=== PATIENT | male | born 1985 | race Caucasian/White ===

== ENCOUNTER 2021-07-23 07:41 | Emergency (ER) | payer SELFPAY ==
--- OUTSIDE RECORDS SUMMARY | 2021-07-23 07:44 | XMS REPORT | Continuity of Care Document ---
:1985 Author Organization [facility] t Address [address] [place] [address] Care Team Providers Name Role Phone Edgardo ROYAL Primary Care Physician Gatito THOMASON Attending Clinician Problems Condition Condition Condition Status Onset Resolution Last Treating Co mments Source Name Details Category Date Date Treatment Clinician Date No known No known Disease Unive rs active active ity of problems problems [facility] Allergies, Adverse Reactions, Alerts This patient has no known allergies or adverse reactions. Social History Social Habit Start Date Stop Date Quantity Comments Source History of Snuff User University of tobacco use [facility] Exposure to Not sure University SARS-CoV-2 [facility] (event) [place] Alcohol intake 2021-07-07 2021-07-07 Lifetime University of 00:00:00 00:00:00 non-drinker [facility] (finding) [place] Tobacco use and 2021-06-11 2021-06-11 Current user Univers ity of exposure 00:00:00 00:00:00 [facility] Sex Assigned At [birth year] Universit y of 00:00:00 00:00:00 [facility] Smoking Status Start Date Stop Date Source Never smoker [facility] Medications Ordered Filled Start Stop Current Ordering Indication Dosage Frequency Signature Comments Components Source Medication Medication Date Date Medication? Clinician (SIG) Name Name amoxicillin Yes [id number] 500mg Take 1 Univers 500 mg 3-31 tablet by ity of tablet 00:00: mouth 2 [place] [address] (two) Medical times [place] daily. clarithromy Yes [id number] 500mg Take 1 Univers brodie 500 mg 3-31 tablet by ity of tablet 00:00: mouth [place] 00 every 12 Medical (twelve) Branch hours. SERTraline Yes Take by Uni vers 100 mg 3-24 mouth ity of tablet 10:09: daily. [address] Branch omeprazole Yes 20mg Take 20 mg U nivers (PRILOSEC 3-24 by mouth ity of OTC) 20 mg 10:09: daily. [facility] 12 Medical Branch busPIRone 2021- Yes [id number] 10mg Take 1 U nivers 10 mg 3-24 05-09 tablet by ity of tablet 00:00: 04:59 mouth 2 [place] 00 :00 (two) Medical times Branch daily as needed for Other (anxiety) for up to 45 days. pantoprazol 2020-03 Yes [id number] 40mg Take 1 Univers e 40 mg EC 1-02 tablet by ity of tablet 00:00: mouth [place] 00 daily. Medical Branch sucralfate 2020-03 Yes [id number] 1g Take 1 U nivers 1 gram 1-02 tablet by ity of tablet 00:00: mouth [place] 00 before Medical meals and Branch at bedtime. Vital Signs Vital Name Observation Time Observation Value Comments Source Systolic blood 2021-07-07 20:54:00 126 mm[Hg] [facility] Diastolic blood 2021-07-07 20:54:00 83 mm[Hg] [facility] Heart rate 2021-07-07 20:54:00 78 /min [facility] Body height 2021-07-07 20:54:00 188 cm [facility] Body weight 2021-07-07 20:54:00 88.111 kg [facility] BMI 2021-07-07 20:54:00 24.94 kg/m2 [facility] Oxygen saturation 2021-07-07 20:54:00 96 /min [facility] in Arterial blood Medical Br anch by Pulse oximetry Procedures This patient has no known procedures. Encounters Start End Encounter Admission Attending Care Care Encounter Source Date/Time Date/Time Type Type Clinicians Facility Department ID 2021-07-07 2021-07-07 ALYSHA Macdonald [id number] Univers 15:40:00 16:15:40 Visit Jet RICHARDSON [id number] Rebeca [id number] Althea TERRAZASIO [id number] Ma dical NAL 059 Branch BUILDING Results This patient has no known results.
[2021-07-23 08:12] LABS: Absolute Lymphocytes (CBC) 1.3 K/uL (0.7-4.9); Hematocrit 46.4 % (39.6-49.0); Lymphocytes % 19.5 % (15.3-44.8); MPV 7.8 fL (7.6-11.3); RBC Red Blood Cell Count 5.22 M/uL (4.33-5.43)
[2021-07-23 08:13] LABS: Protime INR 0.99
[2021-07-23] MEDS ORDERED: NA CHLORIDE 0.9% 1,000 ML ONE (08:14)
[2021-07-23] MEDS ORDERED: ASPIRIN 81 MG CHEWABLE TABLET ONE (08:14)
[2021-07-23 08:26] LABS: ALT/SGPT 33 U/L (12-78); AST/SGOT 19 U/L (15-37); Alkaline Phosphatase 50 U/L (45-117); BUN Blood Urea Nitrogen 19 mg/dL (7-18); Bicarbonate 23 mmol/L (21-32); Bilirubin Total 0.2 mg/dL (0.2-1.0); Glucose Level 98 mg/dL (74-106); Magnesium 2.3 mg/dL (1.8-2.4); NT PRO-BNP 19 pg/mL (<125); Potassium 3.7 mmol/L (3.5-5.1); Protein, Total 7.5 g/dL (6.4-8.2); Sodium Level 137 mmol/L (136-145); Troponin High Sensitivity 3.8 pg/mL (<58.9)
[2021-07-23 08:38] LABS: Bilirubin Direct < 0.1 mg/dL (0-0.2)
--- NOTE | 2021-07-23 08:39 | RAD REPORT ---
EXAM DESCRIPTION: Santino Single View07/23/2021 8:21 am CLINICAL HISTORY: Chest pain COMPARISON: none FINDINGS: Lungs are hyperaerated. The lungs appear clear of acute infiltrate. The heart is normal size
[2021-07-23] MEDS ORDERED: PANTOPRAZOLE 40 MG INJ ONE (09:14)
--- NOTE | 2021-07-23 10:03 | ER ---
Nurse's Notes [facility] Name: Victoriano Pantoja Age: 35 yrs Sex: Male : 1985 Arrival Date: 07/23/2021 Time: 07:[address] Private MD: Diagnosis: Acute gastritis;Chest pain, unspecified Presentation: 07/23 07:55 Chief complaint: Patient states: has had epigastric and chest pains sporadically over iw past 6 months, has been seen by GI Dr. Faina melton and diagnosed with chronic gastritis , H. Pylori, been on abx, is still having soreness in epigastric area and now has sharp pain in RUQ since last night , is also seeing a drilling machine runner in [facility] and is due for an echo and stress test. Coronavirus screen: At this time, the client does not indicate any symptoms associated with coronavirus-19. Ebola Screen: Patient negative for fever greater than or equal to 101.5 degrees Fahrenheit, and additional compatible Ebola Virus Disease symptoms Patient denies exposure to infectious person. Patient denies travel to an Ebola-affected area in the 21 days before illness onset. No symptoms or risks identified at this time. Risk Assessment: Do you want to hurt yourself or someone else? Patient reports no desire to harm self or others. Onset of symptoms was March 2021. 07:55 Method Of Arrival: Ambulatory iw 07:55 Acuity: CHELSEA 3 iw Historical: - Allergies: 07:59 No Known Allergies; iw - Home Meds: 07:59 None [Active]; iw - PMHx: 08:02 chronic gastritis; H. Pylori; iw - PSHx: 07:59 None; iw - Immunization history:: Client reports having NOT received the Covid vaccine. - Social history:: Smoking status: Patient denies any tobacco usage or history of. - Family history:: not pertinent. Screenin:46 Abuse screen: Denies threats or abuse. Nutritional screening: No deficits noted. vg1 Tuberculosis screening: No symptoms or risk factors identified. Fall Risk No fall in past 12 months (0 pts). No secondary diagnosis (0 pts). IV access (20 points). Ambulatory Aid- None/Bed Rest/Nurse Assist (0 pts). Gait- Normal/Bed Rest/Wheelchair (0 pts) Mental Status- Oriented to own ability (0 pts). Total Phelps Fall Scale indicates No Risk (0-24 pts). Assessment: 07:50 General: Appears in no apparent distress. uncomfortable, Behavior is calm, cooperative. vg1 Pain: Complains of pain in chest Pain radiates to under right side of ribs Pain currently is 5 out of 10 on a pain scale. Pain began 1 day ago. Neuro: Cherry Agitation-Sedation Scale (RASS): 0 - Alert and Calm Level of Consciousness is awake, alert, obeys commands, confused, Oriented to person, place, time, situation, Reports dizziness, headache. Cardiovascular: Patient's skin is warm and dry. Respiratory: Reports shortness of breath at rest on exertion Airway is patent Respiratory effort is even, unlabored. GI: Abdomen is flat, Reports nausea. : No signs and/or symptoms were reported regarding the genitourinary system. EENT: No signs and/or symptoms were reported regarding the EENT system. Derm: Skin is intact, is healthy with good turgor. Musculoskeletal: Circulation, motion, and sensation intact. 08:47 Reassessment: Patient appears in no apparent distress at this time. No changes from vg1 previously documented assessment. Patient and/or family updated on plan of care and expected duration. Pain level reassessed. Patient is alert, oriented x 3, equal unlabored respirations, skin warm/dry/pink. 10:04 Reassessment: Patient appears in no apparent distress at this time. No changes from vg1 previously documented assessment. Patient and/or family updated on plan of care and expected duration. Pain level reassessed. Patient is alert, oriented x 3, equal unlabored respirations, skin warm/dry/pink. 10:05 Reassessment: Pt up for d/c, waiting for CT results. vg1 Vital Signs: 08:01 Pulse 91; Resp 16; Pulse Ox 99% on R/A; Weight 86.18 kg; Height 6 ft. 2 in. (187.96 iw cm); Pain 7/10; 08:13 BP 123 / 84; Temp 98.1; jl7 09:00 BP 121 / 78; Pulse 85; Resp 16; Pulse Ox 100% on R/A; vg1 10:04 BP 115 / 83; Pulse 63; Resp 16; Pulse Ox 99% on R/A; vg1 08:01 Body Mass Index 24.39 (86.18 kg, 187.96 cm) ED Course: 07:42 Patient arrived in ED. am2 07:44 Zane Ramsey MD is Attending Physician. jessica 07:50 Pat Oliveros, RN is Primary Nurse. vg1 07:58 Triage completed. iw 08:00 Arm band placed on. iw 08:03 Initial lab(s) drawn, by me, sent to lab. Inserted saline lock: 20 gauge in right vg1 forearm, using aseptic technique. Blood collected. Patient maintains SpO2 saturation greater than 95% on room air. 08:22 XRAY Chest (1 view) In Process Unspecified. EDMS 08:46 Patient has correct armband on for positive identification. Bed in low position. Call vg1 light in reach. Side rails up X 1. Client placed on continuous cardiac and pulse oximetry monitoring. NIBP monitoring applied. 08:46 No provider procedures requiring assistance completed. vg1 09:57 CT Aorta for Dissection In Process Unspecified. EDMS 10:03 Chun Sanchez MD is Referral Physician. jessica 10:03 Kvng Causey MD is Referral Physician. jessica 10:35 IV discontinued, intact, bleeding controlled, No redness/swelling at site. Pressure vg1 dressing applied. Administered Medications: 08:13 Drug: Aspirin Chewable Tablet 324 mg Route: PO; vg1 09:17 Follow up: Response: No adverse reaction vg1 08:13 Drug: NS 0.9% 1000 ml Route: IV; Rate: 1 bolus; Site: right forearm; vg1 09:16 Follow up: IV Status: Completed infusion; IV Intake: 1000ml vg1 09:13 Drug: ProTONIX (pantoprazole) 40 mg Route: IVP; Site: right forearm; vg1 10:05 Follow up: Response: No adverse reaction vg1 Intake: 09:16 IV: 1000ml; Total: 1000ml. vg1 Outcome: 10:03 Discharge ordered by . jessica 10:35 Discharged to home ambulatory. vg1 10:35 Condition: good 10:35 Discharge instructions given to patient, Instructed on discharge instructions, follow up and referral plans. medication usage, Demonstrated understanding of instructions, follow-up care, medications, Prescriptions given X 1. 10:36 Patient left the ED. vg1 Signatures: Dispatcher [employer] EDWI Zane Ramsey MD MD jessica Mark, Tami, RN RN iw Hilary Matos, RN RN jl7 Mer Chapman Victoria, RN RN vg1 Corrections: (The following items were deleted from the chart) 10:13 10:12 Reassessment: Pt up for d/c, waiting for CT results vg1 vg1
--- NOTE | 2021-07-23 10:04 | EDPHYS ---
Physician Documentation [facility] Name: Victoriano Pantoja Age: 35 yrs Sex: Male : 1985 Arrival Date: 07/23/2021 Time: 07:[address] Private MD: ED Physician Zane Ramsey HPI: 07/23 09:39 This 35 yrs old Male presents to ER via Ambulatory with complaints of Chest jessica Pain - radiating to left shoulder/right pectoral. 09:39 The patient or guardian reports chest pain that is located primarily in the epigastric jessica area, anterior chest wall. The pain radiates to chest. Associated signs and symptoms: Pertinent positives: abdominal pain, shortness of breath. The chest pain is described as aching. Duration: The patient or guardian reports multiple episodes, with no pattern. Modifying factors: The symptoms are alleviated by nothing. the symptoms are aggravated by nothing. Severity of pain: At its worst the pain was mild in the emergency department the pain is unchanged. The patient has experienced similar episodes in the past, multiple times. Historical: - Allergies: 07:59 No Known Allergies; iw - Home Meds: 07:59 None [Active]; iw - PMHx: 08:02 chronic gastritis; H. Pylori; iw - PSHx: 07:59 None; iw - Immunization history:: Client reports having NOT received the Covid vaccine. - Social history:: Smoking status: Patient denies any tobacco usage or history of. - Family history:: not pertinent. ROS: 09:39 Constitutional: Negative for fever, chills, and weight loss, Eyes: Negative for injury, jessica pain, redness, and discharge, ENT: Negative for injury, pain, and discharge, Neck: Negative for injury, pain, and swelling, Respiratory: Negative for shortness of breath, cough, wheezing, and pleuritic chest pain, Abdomen/GI: Negative for abdominal pain, nausea, vomiting, diarrhea, and constipation, Back: Negative for injury and pain, : Negative for injury, bleeding, discharge, and swelling, MS/Extremity: Negative for injury and deformity, Skin: Negative for injury, rash, and discoloration, Neuro: Negative for headache, weakness, numbness, tingling, and seizure, Psych: Negative for depression, anxiety, suicide ideation, homicidal ideation, and hallucinations, Allergy/Immunology: Negative for hives, rash, and allergies, Endocrine: Negative for neck swelling, polydipsia, polyuria, polyphagia, and marked weight changes, Hematologic/Lymphatic: Negative for swollen nodes, abnormal bleeding, and unusual bruising. 09:39 Cardiovascular: Positive for chest pain, of the chest. Exam: 09:39 Constitutional: This is a well developed, well nourished patient who is awake, alert, jessica and in no acute distress. Head/Face: Normocephalic, atraumatic. Eyes: Pupils equal round and reactive to light, extra-ocular motions intact. Lids and lashes normal. Conjunctiva and sclera are non-icteric and not injected. Cornea within normal limits. Periorbital areas with no swelling, redness, or edema. ENT: Nares patent. No nasal discharge, no septal abnormalities noted. Tympanic membranes are normal and external auditory canals are clear. Oropharynx with no redness, swelling, or masses, exudates, or evidence of obstruction, uvula midline. Mucous membranes moist. Neck: Trachea midline, no thyromegaly or masses palpated, and no cervical lymphadenopathy. Supple, full range of motion without nuchal rigidity, or vertebral point tenderness. No Meningismus. Chest/axilla: Normal chest wall appearance and motion. Nontender with no deformity. No lesions are appreciated. Cardiovascular: Regular rate and rhythm with a normal S1 and S2. No gallops, murmurs, or rubs. Normal PMI, no JVD. No pulse deficits. Respiratory: Lungs have equal breath sounds bilaterally, clear to auscultation and percussion. No rales, rhonchi or wheezes noted. No increased work of breathing, no retractions or nasal flaring. Back: No spinal tenderness. No costovertebral tenderness. Full range of motion. Male : Normal genitalia with no discharge or lesions. Skin: Warm, dry with normal turgor. Normal color with no rashes, no lesions, and no evidence of cellulitis. MS/ Extremity: Pulses equal, no cyanosis. Neurovascular intact. Full, normal range of motion. Neuro: Awake and alert, GCS 15, oriented to person, place, time, and situation. Cranial nerves II-XII grossly intact. Motor strength 5/5 in all extremities. Sensory grossly intact. Cerebellar exam normal. Normal gait. Psych: Awake, alert, with orientation to person, place and time. Behavior, mood, and affect are within normal limits. 09:39 Musculoskeletal/extremity: Circulation is intact in all extremities. Sensation intact. Compartment Syndrome exam of affected extremity: is normal. DVT Exam: No signs of deep vein thrombosis. no pain, no swelling, no tenderness, negative Homans' sign noted on exam, no appreciated bluish discoloration, no erythema, no increased warmth. Vital Signs: 08:01 Pulse 91; Resp 16; Pulse Ox 99% on R/A; Weight 86.18 kg; Height 6 ft. 2 in. (187.96 iw cm); Pain 7/10; 08:13 BP 123 / 84; Temp 98.1; jl7 09:00 BP 121 / 78; Pulse 85; Resp 16; Pulse Ox 100% on R/A; vg1 10:04 BP 115 / 83; Pulse 63; Resp 16; Pulse Ox 99% on R/A; vg1 08:01 Body Mass Index 24.39 (86.18 kg, 187.96 cm) iw MDM: 07:44 Patient medically screened. jessica 09:39 Differential diagnosis: abnormal EKG, acute myocardial infarction, cholecystitis, jessica costochondritis, esophagitis, hiatal hernia, pancreatitis, peptic ulcer disease, pleurisy, pulmonary embolus, stable angina, thoracic aortic disection, unstable angina. HEART Score: ECG: Normal (0), Age: < or = 45 years (0), Risk Factors: No Risk Factors Known (0), Troponin: < or = 1 x Normal Limit (0), Total Score = 0. The patient's deep vein thrombosis risk score was calculated as follows: Total Score: 0. This patient was found to be at low risk for a deep vein thrombosis by using the Well's assessment criteria. The patient's pulmonary embolism risk score was calculated as follows: Total Score: 0-2 points. This patient was found to be at low risk for a pulmonary embolism by using the Well's assessment criteria. JASON Risk Score: TOTAL SCORE = 0. Data reviewed: vital signs, nurses notes, lab test result(s), radiologic studies, CT scan, plain films. Data interpreted: case picker: rate is 85 beats/min, rhythm is regular, Pulse oximetry: on room air is 100 %. Test interpretation: by ED physician or midlevel provider: ECG. Counseling: I had a detailed discussion with the patient and/or guardian regarding: the historical points, exam findings, and any diagnostic results supporting the discharge/admit diagnosis, lab results, radiology results, the need for outpatient follow up, for definitive care, a supervisor plasma, a family practitioner, a telecommunications field technician. 07/23 07:45 Order name: Basic Metabolic Panel; Complete Time: 08:52 [facility] 07/23 07:45 Order name: CBC with Diff; Complete Time: 08:52 [facility] 07/23 07:45 Order name: LFT's; Complete Time: 08:52 [facility] 07/23 07:45 Order name: Magnesium; Complete Time: 08:52 [facility] 07/23 07:45 Order name: NT PRO-BNP; Complete Time: 08:52 [facility] 07/23 07:45 Order name: PT-INR; Complete Time: 08:52 [facility] 07/23 07:45 Order name: Troponin HS; Complete Time: 08:52 [facility] 07/23 07:45 Order name: XRAY Chest (1 view); Complete Time: 08:52 [facility] 07/23 07:45 Order name: EKG; Complete Time: 07:46 [facility] 07/23 08:52 Order name: Lipase; Complete Time: 09:39 [facility] 07/23 08:55 Order name: CT Aorta for Dissection [facility] 07/23 07:45 Order name: Cardiac monitoring; Complete Time: 08:02 [facility] 07/23 07:45 Order name: EKG - Nurse/Tech; Complete Time: 08:02 [facility] 07/23 07:45 Order name: IV Saline Lock; Complete Time: 08:02 [facility] 07/23 07:45 Order name: Labs collected and sent; Complete Time: 08:02 [facility] 07/23 07:45 Order name: O2 Per Protocol; Complete Time: 08:03 [facility] 07/23 07:45 Order name: O2 Sat Monitoring; Complete Time: 08:03 [facility] Administered Medications: 08:13 Drug: Aspirin Chewable Tablet 324 mg Route: PO; vg1 09:17 Follow up: Response: No adverse reaction vg1 08:13 Drug: NS 0.9% 1000 ml Route: IV; Rate: 1 bolus; Site: right forearm; vg1 09:16 Follow up: IV Status: Completed infusion; IV Intake: 1000ml vg1 09:13 Drug: ProTONIX (pantoprazole) 40 mg Route: IVP; Site: right forearm; vg1 10:05 Follow up: Response: No adverse reaction vg1 Disposition Summary: 07/23/21 10:03 Discharge Ordered Location: Home jessica Problem: new jessica Symptoms: have improved jessica Condition: Stable jessica Diagnosis - Acute gastritis jessica - Chest pain, unspecified jessica Followup: jessica - With: Private Physician - When: 2 - 3 days - Reason: Recheck today's complaints, Continuance of care, Re-evaluation by your physician Followup: jessica - With: - When: 2 - 3 days - Reason: Recheck today's complaints, Re-evaluation by your physician Followup: jessica - With: - When: 2 - 3 days - Reason: Recheck today's complaints, Continuance of care, Re-evaluation by your physician Discharge Instructions: - Discharge Summary Sheet jessica - Nonspecific Chest Pain, Adult jessica - Nonspecific Chest Pain, Adult, [id number] jessica - Aspirin and Your Heart jessica Forms: - Medication Reconciliation Form jessica - Thank You Letter jessica - Antibiotic Education jessica - Prescription Opioid Use [facility] Prescriptions: - Pepcid 20 mg Oral Tablet - take 1 tablet by ORAL route every 12 hours for 30 days; 60 tablet; Refills: 0, jessica Product Selection Permitted Signatures: Dispatcher [employer] Zane Thompson MD MD cha Williams, Irene, RN Pat Lucas RN RN vg1
--- NOTE | 2021-07-23 10:16 | RAD REPORT ---
EXAM DESCRIPTION: CT - Angio Aorta For Dissection - 07/23/2021 9:55 am CLINICAL HISTORY: . Chest and abd pain COMPARISON: None TECHNIQUE: Computed tomography angiography of the chest, abdomen pelvis were obtained. 100 cc Isovue 370 was administered intravenously. Coronal and sagittal reconstruction were performed. MIP 3D reconstruction was performed All CT scans are performed using dose optimization technique as appropriate and may include automated exposure control or mA/KV adjustment according to patient size. FINDINGS: An aortic dissection is not seen. An aortic aneurysm is not displayed. The celiac, SMA and KYLE are patent . A lung consolidation is not present. A pericardial effusion is not seen. A pleural effusion is not no vic. Mild fatty liver 1 Spleen, pancreas,adrenals and kidneys demonstrate no significant abnormality. There no evidence diverticulitis. IMPRESSION: Negative for an aortic dissection.
[2021-07-23 11:05] VITALS: TEMP 98.1
[2021-07-23 11:07] VITALS: BP 115/83; O2SAT 99
--- NOTE | 2021-07-23 14:12 | EKG ---
Test Date: 2021-07-23 Test Time: 07:56:15 [employer] Machine: TESS MEASUREMENT RESULTS: Intervals: Rate: 92 MN: 130 QRSD: 88 QT: 334 QTc: 413 [place]: P: 65 MN: 130 QRS: 79 T: 32 INTERPRETIVE STATEMENTS: Normal sinus rhythm with sinus arrhythmia Normal ECG No previous ECG available for comparison Electronically Signed On 07-23-21 14:11:13 CDT by David Morrow
== END 2021-07-23 10:36 | disposition home or self-care (01) ==
LOC: ER 07:41
DX: K29.00 Acute gastritis without bleeding (principal)
CPT/HCPCS: 36415; 71045; 71275; 74175; 80048; 80076; 83690; 83735; 83880; 84484; 85025; 85610; 93005; 96361; 96374; 99284; C9113; J7030; Q9967

== ENCOUNTER 2022-09-01 12:52 | Emergency (ER) | payer BC, SELFPAY ==
[2022-09-01] MEDS ORDERED: PANTOPRAZOLE 40 MG INJ ONE (13:28)
[2022-09-01] MEDS ORDERED: NA CHLORIDE 0.9% 500 ML ONE (13:28)
[2022-09-01 13:46] LABS: Absolute Lymphocytes (CBC) 1.3 K/uL (0.7-4.9); Hematocrit 49.4 % (39.6-49.0); Lymphocytes % 19.1 % (15.3-44.8); MCV 89.6 fL (80-100); RBC Red Blood Cell Count 5.52 M/uL (4.33-5.43)
--- OUTSIDE RECORDS SUMMARY | 2022-09-01 13:54 | XMS REPORT | Continuity of Care Document ---
:1985 Author Organization [facility] t Address [address] [facility] [address] [place] [address] Care Team Providers Name Role Phone Warner Jones Primary Care Physician WARNER REYNOSO Attending Clinician Unavailable LINSEY VALDERRAMA Attending Clinician Unavailable Zain BRYANT Attending Clinician Unavailable Zain Francisco Attending Clinician Doctor Unassigned, [place] Attending Clinician Unavailable Warner Jones Attending Clinician ALFONSO GARCIA Attending Clinician Unavailable Alfonso Conner Attending Clinician Lab, Ang - Db Attending Clinician Unavailable Lily Chavez Attending Clinician LILY PAREKH Attending Clinician Unavailable JET BIRD Attending Clinician Unavailable Jet Bird MD Attending Clinician Shonda Muñoz MA Attending Clinician Unavailable Stephanie Hurley MD Attending Clinician LINDA ROJAS Attending Clinician Unavailable Linda Jon Attending Clinician Pob, [facility] Main Attending Clinician Unavailable ISAK RODRIGUEZ Attending Clinician Unavailable Isak Rodriguez MD Attending Clinician Holly Castrejon Attending Clinician LINSEY VALDERRAMA Admitting Clinician Unavailable ALFONSO GARCIA Admitting Clinician Unavailable JESSEE GARCIA Admitting Clinician Unavailable LINDA ROJAS Admitting Clinician Unavailable ISAK RODRIGUEZ Admitting Clinician Unavailable Payers Payer Name Policy Type Policy Number Effective Date Expiration Date S félix [facility] [id number] 2021 00:00:00 Problems Condition Condition Condition Status Onset Resolution Last Treating Co mments Source Name Details Category Date Date Treatment Clinician Date Acute Acute Disease Active Univers non-recurr non-recurr 03-24 it y of ent ent 00:00: [place] maxillary maxillary 00 Medi juan carlos sinusitis sinusitis Bran ch Acute Acute Disease Active Univers midline midline 03-24 ity of thoracic thoracic 00:00: [place] back pain back pain 00 Medi juan carlos Branch Cervicalgi Cervicalgi Disease Active U nivers a a 04 ity of 00:00: [place] 00 Medical Branch Fever, Fever, Disease Active Univers unspecifie unspecifie 03-24 it y of d fever d fever 00:00: [place] cause cause 00 Medical Branch No known No known Disease Unive rs active active ity of problems problems [facility] Chronic Chronic Disease Active Univers gastritis gastritis ity of without without [place] bleeding bleeding Medica l Branch Allergies, Adverse Reactions, Alerts Allergy Allergy Status Severity Reaction(s) Onset Inactive Treating Comm ents Source Name Type Date Date Clinician NO KNOWN Drug Active Univers ALLERGIE Class ity of S [facility] Social History Social Habit Start Date Stop Date Quantity Comments Source History of tobacco Snuff User Univer sity of use [facility] Gender identity [facility] Sexual orientation [facility] Exposure to 2022-07-08 2022-07-18 Not sure [facility] SARS-CoV-2 (event) 00:00:00 21:24:00 [facility] Alcohol intake 2022-07-18 2022-07-18 Lifetime University of 00:00:00 00:00:00 non-drinker [facility] (finding) [place] Tobacco use and 2021-11-10 2021-11-10 Smokeless [facility] exposure 00:00:00 00:00:00 tobacco non-user Hospital History of Social 2021-11-10 2021-11-[address] function 00:00:00 00:00:00 Hospital Sex Assigned At [birth year] [facility] 00:00:[facility]:00 [facility] Smoking Status Start Date Stop Date Source Never smoked tobacco [facility] Medications Ordered Filled Start Stop Current Ordering Indication Dosage Frequency Signature Comments Components Source Medication Medication Date Date Medication? Clinician (SIG) Name Name cecilex:diph 2022-0 2022- No 15mL 15 mL, Uni vers enhydrAMINE 07-19 Oral ity of :lidocaine 04:45: 03:52 ([place] 2 % viscous 00 :00 Swallow), Med ical 1:1:1 ONCE, 1 Branch (FIRST-MOUT dose, On HWASH BLM) Sun oral 07/18/22 at suspension 2345, 15 mL Routine DULOXETINE Yes [id number] TAKE 1 U nivers 30 mg 4-13 CAPSULE BY ity of capsule 00:00: MOUTH [place] 00 EVERY Medical MORNING Branch DULOXETINE 0 Yes [id number] TAKE 1 U nivers 30 mg 4-13 CAPSULE BY ity of capsule 00:00: MOUTH [place] 00 EVERY Medical MORNING Branch DULOXETINE 0 Yes [id number] TAKE 1 U nivers 30 mg 4-13 CAPSULE BY ity of capsule 00:00: MOUTH [place] 00 EVERY Medical MORNING Branch gabapentin 2022- Yes [id number] Take 1 Univers 100 mg 3-31 05-15 capsule by ity of capsule 00:00: 04:59 mouth 3 [place] 00 :00 (three) Medical times Branch daily for 7 days, THEN 2 capsules 3 (three) times daily for 7 days, THEN 3 capsules 3 (three) times daily for 30 days. gabapentin 0 2022- Yes [id number] Take 1 Univers 100 mg 3-31 05-15 capsule by ity of capsule 00:00: 04:59 mouth 3 [place] 00 :00 (three) Medical times Branch daily for 7 days, THEN 2 capsules 3 (three) times daily for 7 days, THEN 3 capsules 3 (three) times daily for 30 days. gabapentin 0 2022- Yes [id number] Take 1 Univers 100 mg 3-31 05-15 capsule by ity of capsule 00:00: 04:59 mouth 3 [place] 00 :00 (three) Medical times Branch daily for 7 days, THEN 2 capsules 3 (three) times daily for 7 days, THEN 3 capsules 3 (three) times daily for 30 days. gabapentin 2022- Yes [id number] Take 1 Univers 100 mg 3-31 05-15 capsule by ity of capsule 00:00: 04:59 mouth 3 [place] 00 :00 (three) Medical times Branch daily for 7 days, THEN 2 capsules 3 (three) times daily for 7 days, THEN 3 capsules 3 (three) times daily for 30 days. gabapentin 2022- Yes [id number] Take 1 Univers 100 mg 3-31 05-15 capsule by ity of capsule 00:00: 04:59 mouth 3 [place] 00 :00 (three) Medical times Branch daily for 7 days, THEN 2 capsules 3 (three) times daily for 7 days, THEN 3 capsules 3 (three) times daily for 30 days. iopamidol 2022- No [id number] 100mL 100 mL, Univers (ISOVUE 05-12 Intravenou ity o f 370-500 mL) 09:00: 09:00 s, ONCE, 1 [place] injection 00 :00 dose, On Medica l 100 mL Wed Branch 05/12/22 at 0300, Routine ketorolac 2022- No 15mg 15 mg, Unive rs (TORADOL) 05-12 Slow IV ity of injection 08:15: 07:40 Push, [place] 15 mg 00 :00 ONCE, 1 Medical dose, On Branch 05/12/22 at 0215, Routine ondansetron 2022- No 4mg 4 mg, Slow Univers (ZOFRAN 05-12 IV Push, ity of (PF)) 07:00: 07:02 ONCE, 1 [place] injection 4 00 :00 dose, On Medi juan carlos mg Wed Branch 05/12/22 at 0100, PRITESH NaCl 0.9% 2022- No 1000mL at 999 Uni vers (NS) bolus 05-12 mL/hr, ity of infusion 06:15: 06:57 1,000 mL, Speedy as 1,000 mL 00 :00 IV Medical Infusion, Branch ONCE, 1 dose, On Tue05/12/22 at 0015, PRITESH meclizine 2022- No 25mg 25 mg, Unive rs (TRAVEL-EAS 2-22 -22 Oral, ity of E 05:45: 05:42 ONCE, 1 [place] (MECLIZINE) 00 :00 dose, On Medi juan carlos ) tablet 25 Tue Branch mg 05/11/22 at 2345, PRITESH meclizine 3-0 Yes [id number] 25mg Take 1 U nivers 25 mg 2-22 tablet by ity of tablet 00:00: mouth [place] 00 every 6 Medical (six) Branch hours. meclizine 3-0 Yes [id number] 25mg Take 1 U nivers 25 mg 2-22 tablet by ity of tablet 00:00: mouth [place] 00 every 6 Medical (six) Branch hours. meclizine 3-0 Yes [id number] 25mg Take 1 U nivers 25 mg 2-22 tablet by ity of tablet 00:00: mouth [place] 00 every 6 Medical (six) Branch hours. meclizine 2022-0 Yes [id number] 25mg Take 1 U nivers 25 mg 2-22 tablet by ity of tablet 00:00: mouth [place] 00 every 6 Medical (six) Branch hours. meclizine 2022-0 Yes [id number] 25mg Take 1 U nivers 25 mg 2-22 tablet by ity of tablet 00:00: mouth [place] 00 every 6 Medical (six) Branch hours. meclizine 3-0 Yes [id number] 25mg Take 1 U nivers 25 mg 2-22 tablet by ity of tablet 00:00: mouth [place] 00 every 6 Medical (six) Branch hours. meclizine 3-0 Yes [id number] 25mg Take 1 U nivers 25 mg 2-22 tablet by ity of tablet 00:00: mouth [place] 00 every 6 Medical (six) Branch hours. meclizine 2023-0 Yes [id number] 25mg Take 1 U nivers 25 mg 2-22 tablet by ity of tablet 00:00: mouth [place] 00 every 6 Medical (six) Branch hours. meclizine 2023-0 Yes [id number] 25mg Take 1 U nivers 25 mg 2-22 tablet by ity of tablet 00:00: mouth [place] 00 every 6 Medical (six) Branch hours. diphenhydrA 3-0 2023- No 25mg Take 25 mg Univers MINE 25 mg 2-17 02-17 by mouth ity of capsule 11:48: 00:00 every 6 [place] 04 :00 (six) Medical hours as Branch needed for Allergies. diphenhydrA 2022- No 25mg Take 25 mg Univers MINE 25 mg 05-07 by mouth ity of capsule 11:48: 00:00 every 6 [place] 04 :00 (six) Medical hours as Branch needed for Allergies. omeprazole 2022- No 20mg Take 20 mg Univers 20 mg 05-07 by mouth ity of tablet 11:42: 00:00 daily. [place] 03 :00 Medical Branch omeprazole 2022- No 20mg Take 20 mg Univers 20 mg 05-07 by mouth ity of tablet 11:42: 00:00 daily. [place] 03 :00 Medical Branch SERTraline 2022- No Take by Uni vers 100 mg -05-07 mouth ity of tablet 11:42: 00:00 daily. [place] 00 :00 Medical Branch SERTraline 2022- No Take by Uni vers 100 mg 05-07 mouth ity of tablet 11:42: 00:00 daily. [place] 00 :00 Medical Branch rizatriptan Yes [id number] 10mg Take 1 Univers (MAXALT) 10 2-17 tablet by ity of mg tablet 00:00: mouth [place] 00 needed for Medical Migraine. Branch May repeat in 2 hours if needed DULoxetine 2022-0 Yes [id number] 30mg Take 1 U nivers 30 mg 2-17 capsule by ity of capsule 00:00: mouth in [place] 00 the Medical morning. Branch rizatriptan 2022-0 Yes [id number] 10mg Take 1 Univers (MAXALT) 10 2-17 tablet by ity of mg tablet 00:00: mouth [place] 00 needed for Medical Migraine. Branch May repeat in 2 hours if needed DULoxetine 2022-0 Yes [id number] 30mg Take 1 U nivers 30 mg 2-17 capsule by ity of capsule 00:00: mouth in [place] 00 the Medical morning. Branch rizatriptan 2022-0 Yes [id number] 10mg Take 1 Univers (MAXALT) 10 2-17 tablet by ity of mg tablet 00:00: mouth [place] 00 needed for Medical Migraine. Branch May repeat in 2 hours if needed DULoxetine 3-0 Yes [id number] 30mg Take 1 U nivers 30 mg 2-17 capsule by ity of capsule 00:00: mouth in [place] 00 the Medical morning. Branch rizatriptan 2022-0 Yes [id number] 10mg Take 1 Univers (MAXALT) 10 2-17 tablet by ity of mg tablet 00:00: mouth [place] 00 needed for Medical Migraine. Branch May repeat in 2 hours if needed DULoxetine 2022-0 Yes [id number] 30mg Take 1 U nivers 30 mg 2-17 capsule by ity of capsule 00:00: mouth in [place] the Medical morning. Branch rizatriptan 2022-0 Yes [id number] 10mg Take 1 Univers (MAXALT) 10 2-17 tablet by ity of mg tablet 00:00: mouth [place] 00 needed for Medical Migraine. Branch May repeat in 2 hours if needed DULoxetine 2022-0 Yes [id number] 30mg Take 1 U nivers 30 mg 2-17 capsule by ity of capsule 00:00: mouth in [place] the Medical morning. Branch rizatriptan 2022-0 Yes [id number] 10mg Take 1 Univers (MAXALT) 10 2-17 tablet by ity of mg tablet 00:00: mouth [place] 00 needed for Medical Migraine. Branch May repeat in 2 hours if needed DULoxetine 3-0 Yes [id number] 30mg Take 1 U nivers 30 mg 2-17 capsule by ity of capsule 00:00: mouth in [place] 00 the Medical morning. Branch rizatriptan 2022-0 Yes [id number] 10mg Take 1 Univers (MAXALT) 10 2-17 tablet by ity of mg tablet 00:00: mouth [place] 00 needed for Medical Migraine. Branch May repeat in 2 hours if needed DULoxetine 3-0 Yes [id number] 30mg Take 1 U nivers 30 mg 2-17 capsule by ity of capsule 00:00: mouth in [place] 00 the Medical morning. Branch rizatriptan 3-0 Yes [id number] 10mg Take 1 Univers (MAXALT) 10 2-17 tablet by ity of mg tablet 00:00: mouth [place] 00 needed for Medical Migraine. Branch May repeat in 2 hours if needed DULoxetine 2022-0 Yes [id number] 30mg Take 1 U nivers 30 mg 2-17 capsule by ity of capsule 00:00: mouth in [place] 00 the Medical morning. Branch rizatriptan 2022-0 Yes [id number] 10mg Take 1 Univers (MAXALT) 10 2-17 tablet by ity of mg tablet 00:00: mouth [place] 00 needed for Medical Migraine. Branch May repeat in 2 hours if needed DULoxetine 2022-0 Yes [id number] 30mg Take 1 U nivers 30 mg 2-17 capsule by ity of capsule 00:00: mouth in [place] 00 the Medical morning. Branch rizatriptan 2022-0 Yes [id number] 10mg Take 1 Univers (MAXALT) 10 2-17 tablet by ity of mg tablet 00:00: mouth [place] 00 needed for Medical Migraine. Branch May repeat in 2 hours if needed DULoxetine 2022-0 Yes [id number] 30mg Take 1 U nivers 30 mg 2-17 capsule by ity of capsule 00:00: mouth in [place] 00 the Medical morning. Branch rizatriptan 2022-0 Yes [id number] 10mg Take 1 Univers (MAXALT) 10 2-17 tablet by ity of mg tablet 00:00: mouth [place] 00 needed for Medical Migraine. Branch May repeat in 2 hours if needed rizatriptan 2022-0 Yes [id number] 10mg Take 1 Univers (MAXALT) 10 2-17 tablet by ity of mg tablet 00:00: mouth [place] 00 needed for Medical Migraine. Branch May repeat in 2 hours if needed rizatriptan 2022-0 Yes [id number] 10mg Take 1 Univers (MAXALT) 10 2-17 tablet by ity of mg tablet 00:00: mouth [place] 00 needed for Medical Migraine. Branch May repeat in 2 hours if needed DULoxetine 2022-0 2022- No [id number] 30mg Take 1 Univers 30 mg 2-17 04-13 capsule by ity of capsule 00:00: 00:00 mouth in [place] 00 :00 the Medical morning. Branch diphenhydrA Yes 25mg Take 25 mg Univers MINE 1-04 by mouth ity of (BENADRYL) 11:06: every 6 [place] 25 mg 01 (six) Medical capsule hours as Branch needed for Allergies. ascorbic Yes Take by Univer s acid 1-04 mouth. ity of (VITAMIN C 11:06: [place] ORAL) Medical Branch diphenhydrA Yes 25mg Take 25 mg Univers MINE 1-04 by mouth ity of (BENADRYL) 11:06: every 6 [place] 25 mg 01 (six) Medical capsule hours as Branch needed for Allergies. ascorbic Yes Take by Univer s acid 1-04 mouth. ity of (VITAMIN C 11:06: [place] ORAL) Medical Branch diphenhydrA Yes 25mg Take 25 mg Univers MINE 1-04 by mouth ity of (BENADRYL) 11:06: every 6 [place] 25 mg 01 (six) Medical capsule hours as Branch needed for Allergies. ascorbic Yes Take by Univer s acid 1-04 mouth. ity of (VITAMIN C 11:06: [place] ORAL) Medical Branch ascorbic Yes Take by Univer s acid 1-04 mouth. ity of (VITAMIN C 11:06: [place] ORAL) Medical Branch ascorbic Yes Take by Univer s acid 1-04 mouth. ity of (VITAMIN C 11:06: [place] ORAL) Medical Branch ascorbic Yes Take by Univer s acid 1-04 mouth. ity of (VITAMIN C 11:06: [place] ORAL) Medical Branch ascorbic Yes Take by Univer s acid 1-04 mouth. ity of (VITAMIN C 11:06: [place] ORAL) Medical Branch ascorbic Yes Take by Univer s acid 1-04 mouth. ity of (VITAMIN C 11:06: [place] ORAL) Medical Branch ascorbic Yes Take by Univer s acid 1-04 mouth. ity of (VITAMIN C 11:06: [place] ORAL) Medical Branch ascorbic Yes Take by Univer s acid 1-04 mouth. ity of (VITAMIN C 11:06: [place] ORAL) Medical Branch ascorbic Yes Take by Univer s acid 1-04 mouth. ity of (VITAMIN C 11:06: [place] ORAL) Medical Branch ascorbic Yes Take by Univer s acid 1-04 mouth. ity of (VITAMIN C 11:06: [place] ORAL) Medical Branch ascorbic Yes Take by Univer s acid 1-04 mouth. ity of (VITAMIN C 11:06: [place] ORAL) Medical Branch ascorbic Yes Take by Univer s acid 1-04 mouth. ity of (VITAMIN C 11:06: [place] ORAL) Medical Branch ascorbic Yes Take by Univer s acid 1-04 mouth. ity of (VITAMIN C 11:06: [place] ORAL) Medical Branch ascorbic Yes Take by Univer s acid 1-04 mouth. ity of (VITAMIN C 11:06: [place] ORAL) Medical Branch amoxicillin 2022- No [id number] 1{tbl} Take 1 Univers -clavulanat -04-01 tablet by it y of e 00:00: 05:59 mouth in [place] (AUGMENTIN) 00 :00 the Medical 875-125 mg morning Branch per tablet and 1 tablet in the evening. Do all this for 7 days. amoxicillin 2022- No [id number] 1{tbl} Take 1 Univers -clavulanat -04-01 tablet by it y of e 00:00: 05:59 mouth in [place] (AUGMENTIN) 00 :00 the Medical 875-125 mg morning Branch per tablet and 1 tablet in the evening. Do all this for 7 days. amoxicillin 2022- No [id number] 1{tbl} Take 1 Univers -clavulanat -12 tablet by it y of e 00:00: 05:59 mouth in [place] (AUGMENTIN) 00 :00 the Medical 875-125 mg morning Branch per tablet and 1 tablet in the evening. Do all this for 7 days. nitroglycer 2021-03- No [id number] .8mg 0.8 mg, Univers in 05-04 Sublingual ity of (NITROSTAT) 17:00: 16:24 , ONCE, 1 [place] sublingual 00 :00 dose, On Medic al tablet 0.8 Wed Branch mg 03/03/22 at 1100, Routine metoprolol 2021-03- No [id number] 50mg 50 mg, Univers tartrate 05-04 Oral, ity of (LOPRESSOR) 16:30: 15:45 ONCE, 1 [place] tablet 50 00 :00 dose, On Medica l mg [facility] Branch 03/03/22 at 1030, Routine metoprolol 2021-03- No [id number] 100mg 100 mg, Univers tartrate 05-04 Oral, ity of (LOPRESSOR) 15:45: 15:21 ONCE, 1 [place] tablet 100 00 :00 dose, On Medic al mg [facility] Branch 03/03/22 at 0945, Routine iopamidol 2021-03- No [id number] 80mL 80 mL, U nivers (ISOVUE 05-04 Intravenou ity o f 370-500 mL) 02:30: 15:39 s, ONCE, 1 [place] injection 00 :00 dose, On Medica l 80 mL [facility] Branch 03/02/22 at 2030, Routine SERTraline 2021-03 Yes Take by Univ ers 100 mg 1-21 mouth ity of tablet 13:27: daily. [address] omeprazole 2021-03 Yes 20mg Take 20 mg U nivers 20 mg 1-21 by mouth ity of tablet 13:27: daily. [address] SERTraline 2021-03 Yes Take by Univ ers 100 mg 1-21 mouth ity of tablet 13:27: daily. [address] omeprazole 2021-03 Yes 20mg Take 20 mg U nivers 20 mg 1-21 by mouth ity of tablet 13:27: daily. [address] SERTraline 2021-03 Yes Take by Univ ers 100 mg 1-21 mouth ity of tablet 13:27: daily. [address] omeprazole 2021-03 Yes 20mg Take 20 mg U nivers 20 mg 1-21 by mouth ity of tablet 13:27: daily. [address] SERTraline 2021-03 Yes Take by Univ ers 100 mg 1-21 mouth ity of tablet 13:27: daily. [address] omeprazole 2021-03 Yes 20mg Take 20 mg U nivers 20 mg 1-21 by mouth ity of tablet 13:27: daily. [address] SERTraline 2021-03 Yes Take by [facility] ers 100 mg 1-21 mouth ity of tablet 13:27: daily. [address] omeprazole 2021-03 Yes 20mg Take 20 mg U nivers 20 mg 1-21 by mouth ity of tablet 13:27: daily. [address] SERTraline 2021-03 Yes Take by [facility] ers 100 mg 1-21 mouth ity of tablet 13:27: daily. [address] omeprazole 2021-03 Yes 20mg Take 20 mg U nivers 20 mg 1-21 by mouth ity of tablet 13:27: daily. [address] pantoprazol Yes 40mg QD Take 1 Meth elvira e 9-28 tablet (40 st (PROTONIX) 00:00: mg total) Ho spita 40 MG EC 00 by mouth l tablet daily. omeprazole Yes 20mg QD Take 1 Metho di OTC 8-23 tablet (20 st (PriLOSEC 14:25: mg total) Hos rod OTC) 20 MG 24 by mouth l EC tablet daily. iopamidol 2021- No [id number] 70mL 70 mL, Univers (ISOVUE 10-27 Intravenou ity o f 370-500 mL) 21:30: 21:30 s, ONCE, 1 [place] injection 00 :00 dose, On Medica l 70 mL 10/27/21 Branch at 1630, Routine dicyclomine 2021- No [id number] 10mg Take 1 Univers 10 mg 10-27 capsule by ity of capsule 00:00: 04:59 mouth in [place] 00 :00 the Medical morning Branch and 1 capsule at noon and 1 capsule in the evening. Do all this for 7 days. ondansetron 2021- No [id number] 4mg Take 1 Univers 4 mg 10-27-15 tablet by ity of disintegrat 00:00: 04:59 mouth [place] ing tablet 00 :00 every 8 Medica l (eight) Branch hours as needed for Nausea and Vomiting (N/V) for up to 5 days. busPIRone Yes [id number] 10mg Take 1 Un [place] 10 mg 5-06 tablet by ity of tablet 00:00: mouth 2 (two) Medical times Branch daily as needed for Other (anxiety). busPIRone 2022-0 Yes [id number] 10mg Take 1 Un [place] 10 mg 5-06 tablet by ity of tablet 00:00: mouth 2 (two) Medical times Branch daily as needed for Other (anxiety). busPIRone 2022-0 Yes [id number] 10mg Take 1 Un [place] 10 mg 5-06 tablet by ity of tablet 00:00: mouth (two) Medical times Branch daily as needed for Other (anxiety). busPIRone 2022-0 Yes [id number] 10mg Take 1 Un [place] 10 mg 5-06 tablet by ity of tablet 00:00: mouth (two) Medical times Branch daily as needed for Other (anxiety). busPIRone 2-0 Yes [id number] 10mg Take 1 Un [place] 10 mg 5-06 tablet by ity of tablet 00:00: mouth (two) Medical times Branch daily as needed for Other (anxiety). busPIRone 2-0 Yes [id number] 10mg Take 1 Un [place] 10 mg 5-06 tablet by ity of tablet 00:00: mouth (two) Medical times Branch daily as needed for Other (anxiety). busPIRone 2-0 Yes [id number] 10mg Take 1 Un [place] 10 mg 5-06 tablet by ity of tablet 00:00: mouth 2 (two) Medical times Branch daily as needed for Other (anxiety). busPIRone 2-0 Yes [id number] 10mg Take 1 Un [place] 10 mg 5-06 tablet by ity of tablet 00:00: mouth 2 (two) Medical times Branch daily as needed for Other (anxiety). busPIRone 2022-0 2023- No [id number] 10mg Take 1 U nivers 10 mg 5-06 02-17 tablet by ity of tablet 00:00: 00:00 mouth 2 [place] 00 :00 (two) Medical times Branch daily as needed for Other (anxiety). busPIRone 2022-0 2023- No [id number] 10mg Take 1 U nivers 10 mg 5-06 02-17 tablet by ity of tablet 00:00: 00:00 mouth 2 [place] 00 :00 (two) Medical times Branch daily as needed for Other (anxiety). amoxicillin 2022-0 Yes [id number] 500mg Take 1 Univers 500 mg 3-31 tablet by ity of tablet 00:00: mouth [place] (two) Medical times Branch daily. clarithromy 2022-0 Yes [id number] 500mg Take 1 Univers brodie 500 mg 3-31 tablet by ity of tablet 00:00: mouth [place] 00 every 12 Medical (twelve) Branch hours. amoxicillin 2022-0 Yes [id number] 500mg Take 1 Univers 500 mg 3-31 tablet by ity of tablet 00:00: mouth 2 [place] (two) Medical times Branch daily. clarithromy 2022-0 Yes [id number] 500mg Take 1 Univers brodie 500 mg 3-31 tablet by ity of tablet 00:00: mouth [place] 00 every 12 Medical (twelve) Branch hours. amoxicillin 2022-0 Yes [id number] 500mg Take 1 Univers 500 mg 3-31 tablet by ity of tablet 00:00: mouth [place] (two) Medical times Branch daily. clarithromy 2022-0 Yes [id number] 500mg Take 1 Univers brodie 500 mg 3-31 tablet by ity of tablet 00:00: mouth [place] 00 every 12 Medical (twelve) Branch hours. amoxicillin 2022-0 Yes [id number] 500mg Take 1 Univers 500 mg 3-31 tablet by ity of tablet 00:00: mouth [place] (two) Medical times Branch daily. clarithromy 2022-0 Yes [id number] 500mg Take 1 Univers brodie 500 mg 3-31 tablet by ity of tablet 00:00: mouth [place] 00 every 12 Medical (twelve) Branch hours. amoxicillin 2022-0 Yes [id number] 500mg Take 1 Univers 500 mg 3-31 tablet by ity of tablet 00:00: mouth [place] (two) Medical times Branch daily. clarithromy 2022-0 Yes [id number] 500mg Take 1 Univers brodie 500 mg 3-31 tablet by ity of tablet 00:00: mouth [place] 00 every 12 Medical (twelve) Branch hours. amoxicillin 2022-0 Yes [id number] 500mg Take 1 Univers 500 mg 3-31 tablet by ity of tablet 00:00: mouth [address] [place] [address] (two) Medical times Branch daily. clarithromy 2022-0 Yes [id number] 500mg Take 1 Univers brodie 500 mg 3-31 tablet by ity of tablet 00:00: mouth [place] 00 every 12 Medical (twelve) Branch hours. amoxicillin 2-0 Yes [id number] 500mg Take 1 Univers 500 mg 3-31 tablet by ity of tablet 00:00: mouth 2 [place] 00 (two) Medical times Branch daily. clarithromy 2-0 Yes [id number] 500mg Take 1 Univers brodie 500 mg 3-31 tablet by ity of tablet 00:00: mouth [place] 00 every 12 Medical (twelve) Branch hours. amoxicillin 2-0 Yes [id number] 500mg Take 1 Univers 500 mg 3-31 tablet by ity of tablet 00:00: mouth 2 [place] 00 (two) Medical times Branch daily. clarithromy 2-0 Yes [id number] 500mg Take 1 Univers brodie 500 mg 3-31 tablet by ity of tablet 00:00: mouth [place] 00 every 12 Medical (twelve) Branch hours. amoxicillin 2021-0 Yes [id number] 500mg Take 1 Univers 500 mg 3-31 tablet by ity of tablet 00:00: mouth 2 [place] 00 (two) Medical times Branch daily. clarithromy 2-0 Yes [id number] 500mg Take 1 Univers brodie 500 mg 3-31 tablet by ity of tablet 00:00: mouth [place] 00 every 12 Medical (twelve) Branch hours. amoxicillin 2021-0 3- No [id number] 500mg Take 1 Univers 500 mg 3-31 02-17 tablet by ity of tablet 00:00: 00:00 mouth 2 [place] 00 :00 (two) Medical times Branch daily. clarithromy 2022-0 2023- No [id number] 500mg Take 1 Univers [place] 500 mg 3-31 02-17 tablet by ity of tablet 00:00: 00:00 mouth [place] 00 :00 every 12 Medical (twelve) Branch hours. amoxicillin 2022-0 2023- No [id number] 500mg Take 1 Univers 500 mg 3-31 02-17 tablet by ity of tablet 00:00: 00:00 mouth 2 [place] 00 :00 (two) Medical times Branch daily. clarithromy 2022-0 2023- No [id number] 500mg Take 1 Univers brodie 500 mg 3-31 02-17 tablet by ity of tablet 00:00: 00:00 mouth [place] 00 :00 every 12 Medical (twelve) Branch hours. SERTraline Yes Take by [facility] ers 100 mg 3-24 mouth ity of tablet 10:09: daily. [address] Branch omeprazole Yes 20mg Take 20 mg U nivers (PRILOSEC 3-24 by mouth ity of OTC) 20 mg 10:09: daily. [address] Branch SERTraline Yes Take by [facility] ers 100 mg 3-24 mouth ity of tablet 10:09: daily. [address] Branch omeprazole Yes 20mg Take 20 mg U nivers (PRILOSEC 3-24 by mouth ity of OTC) 20 mg 10:09: daily. [address] Branch SERTraline Yes Take by [facility] ers 100 mg 3-24 mouth ity of tablet 10:09: daily. [address] omeprazole Yes 20mg Take 20 mg U nivers (PRILOSEC 3-24 by mouth ity of OTC) 20 mg 10:09: daily. [address] Branch busPIRone 2021- No [id number] 10mg Take 1 U nivers 10 mg 3-24 -09 tablet by ity of tablet 00:00: 04:59 mouth 2 [place] 00 :00 (two) Medical times Branch daily as needed for Other (anxiety) for up to 45 days. busPIRone 2021- No [id number] 10mg Take 1 U nivers 10 mg 3-24 05-06 tablet by ity of tablet 00:00: 00:00 mouth 2 [place] 00 :00 (two) Medical times [place] daily as needed for Other (anxiety) for up to 45 days. pantoprazol 2020-03 Yes [id number] 40mg Take 1 Univers e 40 mg EC 1-02 tablet by ity of tablet 00:00: mouth [place] 00 daily. Medical Branch sucralfate 2020-03 Yes [id number] 1g Take 1 U nivers 1 gram 1-02 tablet by ity of tablet 00:00: mouth [place] 00 before Medical meals and Branch at bedtime. pantoprazol 2020-03 Yes [id number] 40mg Take 1 Univers e 40 mg EC 1-02 tablet by ity of tablet 00:00: mouth [place] 00 daily. Medical Branch sucralfate 2020-03 Yes [id number] 1g Take 1 U nivers 1 gram 1-02 tablet by ity of tablet 00:00: mouth [place] 00 before Medical meals and Branch at bedtime. pantoprazol 2020-03 Yes [id number] 40mg Take 1 Univers e 40 mg EC 1-02 tablet by ity of tablet 00:00: mouth [place] 00 daily. Medical Branch sucralfate 2020-03 Yes [id number] 1g Take 1 U nivers 1 gram 1-02 tablet by ity of tablet 00:00: mouth [place] 00 before Medical meals and Branch at bedtime. pantoprazol 2020-03 Yes [id number] 40mg Take 1 Univers e 40 mg EC 1-02 tablet by ity of tablet 00:00: mouth [place] 00 daily. Medical Branch sucralfate 2020-03 Yes [id number] 1g Take 1 U nivers 1 gram 1-02 tablet by ity of tablet 00:00: mouth [place] 00 before Medical meals and Branch at bedtime. pantoprazol 2020-03 Yes [id number] 40mg Take 1 Univers e 40 mg EC 1-02 tablet by ity of tablet 00:00: mouth [place] 00 daily. Medical Branch sucralfate 2020-03 Yes [id number] 1g Take 1 U nivers 1 gram 1-02 tablet by ity of tablet 00:00: mouth [place] 00 before Medical meals and Branch at bedtime. pantoprazol 2020-03 Yes [id number] 40mg Take 1 Univers e 40 mg EC 1-02 tablet by ity of tablet 00:00: mouth [place] 00 daily. Medical Branch sucralfate 2020-03 Yes [id number] 1g Take 1 U nivers 1 gram 1-02 tablet by ity of tablet 00:00: mouth [place] 00 before Medical meals and Branch at bedtime. pantoprazol 2020-03 Yes [id number] 40mg Take 1 Univers e 40 mg EC 1-02 tablet by ity of tablet 00:00: mouth [place] 00 daily. Medical Branch sucralfate 2020-03 Yes [id number] 1g Take 1 U nivers 1 gram 1-02 tablet by ity of tablet 00:00: mouth [place] 00 before Medical meals and Branch at bedtime. pantoprazol 2020-03 Yes [id number] 40mg Take 1 Univers e 40 mg EC 1-02 tablet by ity of tablet 00:00: mouth [place] 00 daily. Medical Branch sucralfate 2020-03 Yes [id number] 1g Take 1 U nivers 1 gram 1-02 tablet by ity of tablet 00:00: mouth [place] 00 before Medical meals and Branch at bedtime. pantoprazol 2020-03 Yes [id number] 40mg Take 1 Univers e 40 mg EC 1-02 tablet by ity of tablet 00:00: mouth [place] 00 daily. Medical Branch sucralfate 2020-03 Yes [id number] 1g Take 1 U nivers 1 gram 1-02 tablet by ity of tablet 00:00: mouth [place] 00 before Medical meals and Branch at bedtime. pantoprazol 2020-03 Yes [id number] 40mg Take 1 Univers e 40 mg EC 1-02 tablet by ity of tablet 00:00: mouth [place] 00 daily. [facility] pantoprazol 2020-03 Yes [id number] 40mg Take 1 Univers e 40 mg EC 1-02 tablet by ity of tablet 00:00: mouth [place] 00 daily. Medical Branch pantoprazol 2020-03 Yes [id number] 40mg Take 1 Univers e 40 mg EC 1-02 tablet by ity of tablet 00:00: mouth [place] 00 daily. Medical Branch pantoprazol 2020-03 Yes [id number] 40mg Take 1 Univers e 40 mg EC 1-02 tablet by ity of tablet 00:00: mouth [place] 00 daily. Medical Branch pantoprazol 2020-03 Yes [id number] 40mg Take 1 Univers e 40 mg EC 1-02 tablet by ity of tablet 00:00: mouth [place] 00 daily. Medical Branch pantoprazol 2020-03 Yes [id number] 40mg Take 1 Univers e 40 mg EC 1-02 tablet by ity of tablet 00:00: mouth [place] 00 daily. [facility] pantoprazol 2020-03 Yes [id number] 40mg Take 1 Univers e 40 mg EC 1-02 tablet by ity of tablet 00:00: mouth [place] 00 daily. [facility] pantoprazol 2020-03 Yes [id number] 40mg Take 1 Univers e 40 mg EC 1-02 tablet by ity of tablet 00:00: mouth [place] 00 daily. Medical Branch pantoprazol 2020-03 Yes [id number] 40mg Take 1 Univers e 40 mg EC 1-02 tablet by ity of tablet 00:00: mouth [place] 00 daily. Medical Branch pantoprazol 2020-03 Yes [id number] 40mg Take 1 Univers e 40 mg EC 1-02 tablet by ity of tablet 00:00: mouth [place] 00 daily. Medical Branch pantoprazol 2020-03 Yes [id number] 40mg Take 1 Univers e 40 mg EC 1-02 tablet by ity of tablet 00:00: mouth [place] 00 daily. Medical Branch pantoprazol 2020-03 Yes [id number] 40mg Take 1 Univers e 40 mg EC 1-02 tablet by ity of tablet 00:00: mouth [place] 00 daily. Medical Branch pantoprazol 2020-03 Yes [id number] 40mg Take 1 Univers e 40 mg EC 1-02 tablet by ity of tablet 00:00: mouth [place] 00 daily. Medical Branch sucralfate 2020-03- No [id number] 1g Take 1 Univers 1 gram 1-02 02-17 tablet by ity of tablet 00:00: 00:00 mouth [place] 00 :00 before Medical meals and Branch at bedtime. sucralfate 2020-03- No [id number] 1g Take 1 Univers 1 gram 1-02 02-17 tablet by ity of tablet 00:00: 00:00 mouth [place] 00 :00 before Medical meals and Branch at bedtime. Vital Signs Vital Name Observation Time Observation Value Comments Source Systolic blood 2022-07-19 02:15:00 140 mm[facility]Hg[facility] 2022-07-19 02:15:00 97 mm[Hg] [facility] Heart rate 2022-07-19 02:15:00 71 /min [facility] Body temperature 2022-07-19 02:15:00 36.5 Chante [facility] Respiratory rate 2022-07-19 02:15:00 17 /min [facility] Body height 2022-07-19 02:15:00 188 cm [facility] Body weight 2022-07-19 02:15:00 88.451 kg [facility] BMI 2022-07-19 02:15:00 25.04 kg/m2 [facility] [place] [facility] Oxygen saturation in 2022-07-19 02:15:00 98 /min University of Arterial blood by [facility] [place] [facility] Pulse oximetry Branch Systolic blood 2022-06-18 16:46:00 130 mm[Hg] Univer sity of pressure [place] [facility] Diastolic blood 2022-06-18 16:46:00 79 mm[Hg] Unive rsity of pressure [place] [facility] Heart rate 2022-06-18 16:46:00 76 /min [facility] [place] [facility] Body height 2022-06-18 16:46:00 188 cm [facility] [place] [facility] Body weight 2022-06-18 16:46:00 90.719 kg [facility] [place] [facility] BMI 2022-06-18 16:46:00 25.68 kg/m2 [facility] [place] [facility] Oxygen saturation in 2022-06-18 16:46:00 97 /min University of Arterial blood by [facility] [place] [facility] Pulse oximetry Branch Heart rate 2022-05-12 08:00:00 73 /min [facility] [place] [facility] Oxygen saturation in 2022-05-12 08:00:00 95 /min University of Arterial blood by [facility] [place] [facility] Pulse oximetry Branch Systolic blood 2022-05-12 07:30:00 139 mm[Hg] Univer sity of pressure [place] [facility] Diastolic blood 2022-05-12 07:30:00 76 mm[Hg] Unive rsity of pressure [place] [facility] Respiratory rate 2022-05-12 07:30:00 16 /min [facility] ers[facility] [place] [facility] Body temperature 2022-05-12 04:57:00 35.61 Chante [facility] [place] [facility] Body height 2022-05-12 04:57:00 188 cm [facility] [place] [facility] Body weight 2022-05-12 04:57:00 90.719 kg [facility] [place] [facility] BMI 2022-05-12 04:57:00 25.68 kg/m2 [facility] [place] [facility] Systolic blood 2022-05-11 21:47:00 126 mm[Hg] Univer sity of pressure [place] [facility] Diastolic blood 2022-05-11 21:47:00 80 mm[Hg] Unive rsity of pressure [place] [facility] Heart rate 2022-05-11 21:47:00 79 /min [facility] [place] [facility] Body height 2022-05-11 21:47:00 188 cm [facility] [place] [facility] Body weight 2022-05-11 21:47:00 90.719 kg [facility] [place] [facility] BMI 2022-05-11 21:47:00 25.68 kg/m2 [facility] [place] [facility] Systolic blood 2022-05-07 17:42:00 133 mm[Hg] Univer sity of pressure [place] [facility] Diastolic blood 2022-05-07 17:42:00 83 mm[Hg] Unive rsity of pressure [place] [facility] Heart rate 2022-05-07 17:42:00 72 /min [facility] [place] [facility] Body height 2022-05-07 17:42:00 188 cm [facility] [place] [facility] Body weight 2022-05-07 17:42:00 90.357 kg [facility] [place] [facility] BMI 2022-05-07 17:42:00 25.58 kg/m2 [facility] [place] [facility] Oxygen saturation in 2022-05-07 17:42:00 97 /min University of Arterial blood by [employer] Pulse oximetry Branch Systolic blood 2022-03-24 16:53:00 110 mm[Hg] Univer sity of pressure [place] [facility] Diastolic blood 2022-03-24 16:53:00 72 mm[Hg] Unive rsity of pressure [place] [facility] Heart rate 2022-03-24 16:53:00 91 /min [facility] [place] [facility] Body temperature 2022-03-24 16:53:00 36.83 Chante [facility] [place] [facility] Body height 2022-03-24 16:53:00 188 cm [facility] [place] [facility] Body weight 2022-03-24 16:53:00 88.451 kg [facility] [place] [facility] BMI 2022-03-24 16:53:00 25.04 kg/m2 [facility] [place] [facility] Oxygen saturation in 2022-03-24 16:53:00 98 /min University of Arterial blood by [employer] Pulse oximetry Branch Systolic blood 2022-02-08 19:31:00 127 mm[Hg] Univer sity of pressure [place] [facility] Diastolic blood 2022-02-08 19:31:00 84 mm[Hg] Unive rsity of pressure [place] [facility] Heart rate 2022-02-08 19:31:00 72 /min [facility] [place] [facility] Body temperature 2022-02-08 19:31:00 37.17 Chante [facility] [place] [facility] Respiratory rate 2022-02-08 19:31:00 17 /min [facility] [place] [facility] Body height 2022-02-08 19:31:00 188 cm [facility] [place] [facility] Body weight 2022-02-08 19:31:00 85.458 kg [facility] [place] [facility] BMI 2022-02-08 19:31:00 24.19 kg/m2 [facility] [place] [facility] Oxygen saturation in 2022-02-08 19:31:00 98 /min University of Arterial blood by [facility] [place] [facility] Pulse oximetry Branch Systolic blood 2021-10-27 21:00:00 95 mm[Hg] Univer sity of pressure [place] [facility] Diastolic blood 2021-10-27 21:00:00 61 mm[Hg] Unive rsity of pressure [place] [facility] Heart rate 2021-10-27 21:00:00 59 /min [facility] [place] [facility] Respiratory rate 2021-10-27 21:00:00 16 /min Univ [facility] [place] [facility] Oxygen saturation in 2021-10-27 21:00:00 98 /min University of Arterial blood by [facility] [place] [facility] Pulse oximetry Branch Body temperature 2021-10-27 18:37:00 37.06 Chante [facility] [place] [facility] Body weight 2021-10-27 18:37:00 90.266 kg [facility] [place] [facility] BMI 2021-10-27 18:37:00 25.55 kg/m2 [facility] [place] [facility] Systolic blood 2021-07-07 20:54:00 126 mm[Hg] Univer sity of pressure [place] [facility] Diastolic blood 2021-07-07 20:54:00 83 mm[Hg] Unive rsity of pressure [place] [facility] Heart rate 2021-07-07 20:54:00 78 /min [facility] [place] [facility] Body height 2021-07-07 20:54:00 188 cm [facility] Body weight 2021-07-07 20:54:00 88.111 kg [facility] BMI 2021-07-07 20:54:00 24.94 kg/m2 [facility] Oxygen saturation in 2021-07-07 20:54:00 96 /min University Arterial blood by [facility] [place] [facility] Pulse oximetry Branch Systolic blood 2021-11-10 19:23:00 130 mm[Hg] [facility] Diastolic blood 2021-11-10 19:23:00 82 mm[Hg] [facility] pressure Heart rate 2021-11-10 19:23:00 75 /min [facility] Body height 2021-11-10 19:23:00 188 cm [facility] Body weight 2021-11-10 19:23:00 88.451 kg [facility] BMI 2021-11-10 19:23:00 25.04 kg/m2 [facility] Procedures Procedure Date / Time Performing Clinician Source Performed EKG-12 LEAD 2022-07-19 04:52:46 [facility] LIPASE 2022-07-19 03:33:00 [facility] MAGNESIUM 2022-07-19 03:33:00 Kody[facility] TROPONIN I 2022-07-19 03:33:00 Kody[facility] COMP. METABOLIC PANEL 2022-07-19 03:33:[address] [facility] ([id number]) [facility] CBC WITH DIFF 2022-07-19 03:33:00 Kody[facility] NOTICE OF PRIVACY 2022-07-19 02:13:15 Doctor Unassigned, No [facility] CONSENT/REFUSAL FOR 2022-07-19 02:12:56 Doctor Unassigned, No [facility] [place] [facility] Name Medical Branch CONSENT/REFUSAL FOR 2022-06-15 20:54:26 Doctor Unassigned, No [facility] [place] [facility] Name Medical Branch ASSIGNMENT OF BENEFITS 2022-06-15 20:54:10 Doctor Unassigned, No [facility] Name [facility] EKG-12 LEAD 2022-05-12 08:37:02 Jackie [facility] LIPASE 2022-05-12 05:30:00 Jackie [facility] COMP. METABOLIC PANEL 2022-05-12 05:30:[address] [facility] ([id number]) [facility] CBC WITH DIFF 2022-05-12 05:30:00 Jackie [facility] CONSENT/REFUSAL FOR 2022-05-12 04:50:55 Doctor Unassigned, No Un [facility] DIAGNOSIS AND TREATMENT Name [facility] CT ANGIOGRAPHY 2022-03-03 17:00:00 [facility] CORONARIES WITHOUT Medical Bran h CARDIAC CALCIUM SCORING HB CREATININE 2022-03-03 16:16:00 [facility] SERUM/BLOOD FOR IMAGING [facility] SURGICAL PATHOLOGY 2021-12-16 20:21:00 Stephanie Hurley [facility] REQUEST US ABDOMEN COMPLETE 2021-11-20 15:23:01 [facility]ES 2021-11-10 20:42:00 Stephanie Hurley [facility] SEDIMENTATION RATE 2021-11-10 20:42:00 Shubham [facility] C-REACTIVE PROTEIN 2021-11-10 20:42:00 Stephanie Hurley [facility] LIPASE LEVEL 2021-11-10 20:42:00 Stephanie Hurley [facility] AMYLASE LEVEL 2021-11-10 20:42:00 [facility] HEMOGRAM 2021-11-10 20:42:00 [facility] CT ABDOMEN PELVIS W 2021-10-27 20:25:14 Linda Rojas [facility] CONTRAST [facility] URINALYSIS 2021-10-27 20:17:00 Crystal [facility] Medical [place] LIPASE 2021-10-27 20:13:00 Crystal [facility] y [facility] COMP. METABOLIC PANEL 2021-10-27 20:13:00 Linda Rojas Uni versity [facility] ([id number]) [facility] CBC WITH DIFF 2021-10-27 20:13:00 Linda Rojas [facility] y [facility] CONSENT/REFUSAL FOR 2021-10-27 18:26:34 Doctor Unassigned, No [facility] Name [facility] Plan of Care Planned Activity Planned Date Details Comments Source Future Scheduled 2022-07-18 COVID-[address] [facility] Test 21:13:38 (#1) [code = COVID-19 VACCINE (#1)] Future Scheduled 2022-07-18 [facility] 21:13:38 screening (procedure) [code = 447840966] Future Scheduled 2022-07-18 INFLUENZA VACCINE [facility] 21:13:38 [code = INFLUENZA VACCINE] Encounters Start End Encounter Admission Attending Care Care Encounter Source Date/Time Date/Time Type Type Clinicians Facility Department ID 2022-11-05 2022-11-05 Outpatient Shahrzad REYNOSO [facility] [id number] Univers 15:00:00 15:00:00 WARNER itrishi [facility] 2022-07-23 2022-07-23 Outpatient [facility] [id number] Univers 08:00:00 08:00:00 LINSEY itrishi [facility] 2022-07-18 2022-07-19 Emergency X Zain BRYANT [facility] ERT [id number] Univers 21:29:00 00:14:00 ity [facility] 2022-07-18 2022-07-19 Emergency Zain Bryant R[facility] 1.2.840.114 [id number] Univers 21:29:00 00:14:00 Jaylin RICHARDSON 350.1.13.10 i ty sherry VANCE 4.2.7.2.686 [facility] [id number] [place] [address] Branch 2022-07-18 2022-07-18 Orders Doctor MEDINA 1.2.840.114 [id number] Univers 00:00:00 00:00:00 Only UnassignedJILLIAN 350.1.13.10 ity of [place] [facility] 4.2.7.2.686 Speedy as [phone] [facility] 00[address] [place] 2022-06-30 2022-06-30 [facility] 1.2.840.114 [id number] Univers 00:00:00 00:00:00 [facility] 350.1.13.10 it y of [place] 4.2.7.2.686 Speedy as DALILA?BLEA [id number] [facility] [address] [place] MEDICAL OFFICE [facility] 2022-06-18 2022-06-18 Outpatient R [facility] [id number] Univers 11:30:00 12:08:25 LINSEY ity of [facility] 2022-06-18 2022-06-18 Office [facility] 1.2.840.114 [id number] Univers 11:30:00 12:08:25 Visit Linsey [employer] 350.1.13.10 it y of [place] 4.2.7.2.686 Speedy as DALILA?BLEA [phone] [facility] [address] [place] MEDICAL OFFICE [facility] 2022-06-15 2022-06-15 Outpatient R [facility] [id number] Univers 15:56:20 23:59:00 LINSEY ity of [facility] 2022-06-15 2022-06-15 Hospital [facility] 1.2.840.114 [id number] Univers 15:56:20 23:59:00 Encounter Linsey RICHARDSON 350.1.13.10 ity [place]2.[place] [id number] [facility] 8[address] [place] 2022-06-15 2022-06-15 Orders Doctor CAROL 1.2.840.114 [id number] Univers 00:00:00 00:00:00 Only Unassigned, JILLIAN 350.1.13.10 ity of [place] [facility] 4.2.7.2.686 Speedy as [id number] [facility] 00[address] [place] 2022-05-31 2022-05-31 Telephone [facility] 1.2.208.249 [id number] Univers 00:00:00 00:00:00 LinseyMeMed 350.1.13.10 it y of [place] 4.2.7.2.686 Speedy as DALILA?BLEA [id number] Wy colleen PERERA 0[address] [facility] OFFICE [facility] 2022-05-11 2022-05-12 Emergency [facility] [id number] Univers 22:53:00 02:53:00 CHRISTOPHER it y of [facility] 2022-05-11 2022-05-12 Emergency [facility] 1.2.098.946 [id number] Univers 22:53:00 02:53:00 Christopher DEBRA 350.1.13.10 ity of [facility] 4.2.7.2.686 [place] [facility] [id number] [address] 2022-05-11 2022-05-11 Outpatient R LAVELLE [facility] [id number] Univers 16:00:00 16:27:03 LINSEY ity of [facility] 2022-05-11 2022-05-11 Office [facility] 1.2.840.114 [id number] Univers 16:00:00 16:27:03 Visit LinseyPriceSpot 350.1.13.10 it y of [place] 4.2.7.2.686 Speedy as DALILA?BLEA [id number] Wy [place] [id number] [facility] OFFICE [facility] 2022-05-07 2022-05-07 Outpatient R EDGARDO [facility] [id number] Univers 11:30:00 12:09:35 WARNER ity of [facility] 2022-05-07 2022-05-07 Office Edgardo RUST 1.2.840.114 [id number] Univers 11:30:00 12:09:35 Visit Warner [employer] 350.1.13.10 it y of [place] 4.2.7.2.686 Speedy as DALILA?BLEA [id number] Wy colleen PERERA 044 [facility] OFFICE [facility] 2022-03-24 2022-03-24 Hide Buffer Lab, Ang - Db RUST 1.2.840.1 14 [id number] Univers 11:45:00 12:00:00 Visit Lily Parekh [facility] 350.1.13.10 ity of [facility] 4.2.7.2.686 Speedy as DALILA?BLEA [id number] Wy alekseyromain PERERA [address] [facility] OFFICE [facility] 2022-03-24 2022-03-24 Outpatient R [facility] [id number] Univers 11:45:00 11:52:32 LILY ity of [facility] 2022-03-24 2022-03-24 Office [facility] 1.2.840.114 [id number] Univers 11:00:00 11:34:17 Visit Lily [facility] 350.1.13.10 it y of [facility] 4.2.7.2.686 Speedy as DALILA?BLEA [id number] Wy alekseyromain PERERA 0[address] [facility] OFFICE [facility] 2022-03-03 2022-03-03 Outpatient R [facility] [id number] Univers 08:10:45 23:59:00 LAURATRENTON emy o f [facility] 2022-03-03 2022-03-03 [facility] 1.2.840.114 [id number] Univers 08:10:45 23:59:00 Encounter Lauramannbobby RICHARDSON 350.1.13.10 ity of [facility] 4.[place].7.2.[place] [id number] [address] 2022-02-08 2022-02-08 Outpatient R [facility] [id number] Univers 13:20:00 13:49:49 JET emy o f [facility] 2022-02-08 2022-02-08 Office [facility] 1.2.840.114 [id number] Univers 13:20:00 13:49:49 Visit Jet RICHARDSON 350.1.13.10 ity of [facility] 4.2.7.2.686 [place] [facility] [id number] Wy alekseyromain RACHELL 059 [facility] 2022-01-07 2022-01-07 Telephone Toni, 1.2.840.1 [id number] Methodi 00:00:00 00:00:[address] 3.430.2.7 Hospit a .3.409204 l .8 2021-12-16 2021-12-16 Lab Shubham, 1.2.840.1 [id number] Methodi 15:15:00 15:20:00 Stephanie Foote 62972.1.1 151 s t 3.430.2.7 Hospit a .3.779867 l .8 2021-12-16 2021-12-16 [facility]patient [facility] [id number] [place] 00:00:00 00:00:[address] 2021-12-16 2021-12-16 Telephone Elizabethcamila, 1.2.840.1 [id number] Methodi 00:00:00 00:00:[address] 3.430.2.7 Hospit a .3.863067 l .8 2021-12-16 2021-12-16 Orders Shubham, 1.2.840.1 [id number] Methodi 00:00:00 00:00:00 Only Stephanie Foote 26719.1.1 838 s t 3.430.2.7 Hospit a .3.148731 l .8 2021-12-15 2021-12-15 Telephone Shubham, 1.2.840.1 [id number] Methodi 00:00:00 00:00:00 Stephanie Good. 49515.1.1 018 s t 3.430.2.7 Hospit a .3.299150 l .8 2021-11-24 2021-11-24 Telephone Shubham, 1.2.840.1 [id number] Methodi 00:00:00 00:00:00 Stephanie L. 27517.1.1 500 s t 3.430.2.7 Hospit a .3.872251 l .8 2021-11-20 2021-11-20 Outpatient [facility] [id number] [place] 00:00:00 00:00:00 STEPHANIE [address] 2021-11-10 2021-11-10 Lab Shubham, 1.2.840.1 [id number] Methodi 15:30:00 15:35:00 Stephanie Foote 04536.1.1 856 s t 3.430.2.7 Hospit a .3.152170 l .8 2021-11-10 2021-11-10 Office Shubham 1.2.840.1 [id number] Methodi 15:00:00 15:11:58 Visit Stephanie Foote 86093.1.1 137 s t 3.430.2.7 Hospit a .3.618073 l .8 2021-11-10 2021-11-10 Outpatient SHUBHAM [facility] [id number] [place] 00:00:00 00:00:00 STEPHANIE [address] 2021-11-10 2021-11-10 Travel 1.2.840.1 1.2.411.978 [id number] Methodi 00:00:00 00:00:[address] 3.430.2.7 0.2.7.3.698 Ho spita .3.232471 084.8 l .8 2021-11-10 2021-11-10 Outpatient SHUBHAM [facility] [id number] [place] 00:00:00 00:00:00 STEPHANIE 856 Method i 2021-10-27 2021-10-27 Emergency X [facility] ERT [id number] Univers 13:40:00 16:59:00 LINDA womack [facility] 2021-10-27 2021-10-27 Emergency [facility] 1.2.840.114 [id number] Univers 13:40:00 16:59:00 Linda Janelle RICHARDSON 350.1.13.10 [facility] 4.2.7.2.686 [facility] [id number] [address] 2021-08-07 2021-08-07 Outpatient Shahrzad [facility] [id number] Univers 12:49:46 23:59:00 JET womack o f [facility] 2021-08-07 2021-08-07 Outpatient Shahrzad [facility] [id number] Univers 13:00:00 13:00:00 JET ity o f [facility] 2021-07-24 2021-07-24 [facility] 1.2.840.114 [id number] Univers 00:00:00 00:00:00 [facility] 350.1.13.10 it y of [place] 4.2.7.2.686 Speedy as DALILA?BLEA [id number] [address] OFFICE [facility] 2021-07-07 2021-07-07 Outpatient R GATITO [facility] [id number] Univers 15:40:00 16:15:40 JET stricklandy o f [facility] 2021-07-07 2021-07-07 Office [facility] 1.2.840.114 [id number] Univers 15:40:00 16:15:40 Visit Jet RICHARDSON 350.1.13.10 it[place] [phone] Wy dicms NAL 059 [facility] 2021-06-19 2021-06-19 Telephone [facility] 1.2.600.255 [id number] Univers 00:00:00 00:00:00 [facility] 350.1.13.10 it y of [place] 4.2.7.2.686 Speedy as DALILA?BLEA [phone] [address] OFFICE [facility] 2021-06-18 2021-06-18 Telephone [facility] 1.2.742.217 [id number] Univers 00:00:00 00:00:00 [facility] 350.1.13.10 it y of [place] 4.2.7.2.686 Speedy as DALILA?BLEA [phone] [address] OFFICE [facility] 2021-06-12 2021-06-12 Hide Buffer Vineet Escobar Lab Main [place] 1.2.8 40.114 [id number] Univers 15:30:00 15:45:00 Visit SusanWarner adkins 350.1.13.10 it[place] [phone] Wy dical NAL 353 [facility] 2021-06-12 2021-06-12 Hide Buffer Shawn, Adc Lab Main [place] 1.2.8 40.114 [id number] Univers 15:30:00 15:45:00 Visit Warner Reynoso 350.1.13.10 [place] [phone] Wy dical NAL 353 [facility] 2021-06-12 2021-06-12 Outpatient [facility] [id number] Univers 15:30:00 15:30:00 WARNER itrishi [facility] 2021-06-11 2021-06-11 Office [facility] 1.2.840.114 [id number] Univers 10:00:00 14:40:40 Visit Warner FLORA 350.1.13.10 it y [facility] 4.2.7.2.686 Speedy as DALILA?BLEA [phone] [facility] [address] [facility] OFFICE [facility] 2021-06-11 2021-06-11 Outpatient R [facility] [id number] Univers 10:00:00 14:40:40 WARNER itrishi [facility] 2021-06-11 2021-06-11 Outpatient R [facility] [id number] Univers 10:00:00 10:00:00 WARNER [facility] 2021-01-20 2021-01-20 Emergency [facility] [id number] Univers 09:01:00 11:02:00 ISAK rishi [facility] 2021-01-20 2021-01-20 Emergency [facility] 1.2.559.647 [id number] Univers 09:01:00 11:02:00 Isak RICHARDSON 350.1.13.10 i ty of [place] [id number] [address] 2020-12-02 2020-12-02 Emergency [facility] 1.2.420.511 [id number] Univers 14:35:00 16:31:00 Holly Richardson 350.1.13.10 i ty of [place] 4.2.7.2.686 [facility] [phone] [facility] [address] 2020-12-02 2020-12-02 Emergency X [place] ERT [id number] Univers 14:23:00 14:23:00 ity [facility] Results Test Description Test Time Test Comments Results Result Comments Source TROPONIN I 2022-07-19 04:19:28 Test Item Value Reference Range Interpretation Comme nts TROPONIN I (test code = 4558921126) 0.003 ng/mL <=0.034 CHELI (test code = CHELI) Reference (Normal) Range (defined by the 99th percentile reference limit): <= 0.034 ng/mL Note: Cardiac troponin begins to rise 3-4 hours after the onset of ischemia. Repeat in 4-6 hours if the sample was drawn within 3-4 hours of the onset of the symptom and found normal. Diagnosis of myocardial injury is made with acute changes in cTn concentrations with at least one serial sample above the 99th percentile upper reference limit (URL), taken together with the patient's clinical presentation. Biotin has been reported to cause a negative bias, interpret results relative to patient's use of biotin. Lab Interpretation (test code = Normal 24932-7) [facility]OLIC [facility] (62053)2022-07-19 04:07:45 Test Item Value Reference Range Interpretation Comments NA (test code = 139 mmol/L 135-145 9450275482) K (test code = 4.1 mmol/L 3.5-5.0 7310102858) CL (test code = 107 mmol/L 98-108 7940456372) CO2 TOTAL (test code 28 mmol/L 23-31 = 0909771083) AGAP (test code = 4 2-16 2506045488) BUN (test code = 15 mg/dL 7-23 3539554904) GLUCOSE (test code = 82 mg/dL 70-110 4669071313) CREATININE (test code 0.87 mg/dL 0.60-1.25 = 5087293653) TOTAL BILI (test code 0.5 mg/dL 0.1-1.1 = 5166221415) CALCIUM (test code = 9.1 mg/dL 8.6-10.6 3292190861) T PROTEIN (test code 7.1 g/dL 6.3-8.2 = 0852796462) ALBUMIN (test code = 4.4 g/dL 3.5-5.0 3649463129) ALK PHOS (test code = 36 U/L 34-122 8221841498) ALTv (test code = 29 U/L 5-50 1742-6) AST(SGOT) (test code 27 U/L 13-40 = 6706557368) eGFR (test code = 99.9 mL/min/1.73m2 6414917429) CHELI (test code = CHELI) Association of Glomerular Filtration Rate (GFR) and Staging of Kidney Disease* + + +- +| GFR (mL/min/1.73 m2) ?| With Kidney Damage ?| ?Without Kidney Damage+ ------+ ----+ ------+| ?>90 ?| ?Stage one ?| ? Normal ?+ -+ + -+| ?60-89 ?| ?Stage two ?| ? Decreased GFR ? + + +- +| ?30-59 ?| ?Stage three ?| ? Stage three ? + + +- +| ?15-29 ?| ?Stage four ? | ? Stage four ?+ -+ + -+| ?<15 (or dialysis) ? ?| ?Stage five ? | ? Stage five ?+ -+ + -+ *Each stage assumes the associated GFR level has been in effect for at least three months. ?Stages 1 to 5, with or without kidney disease, indicate chronic kidney disease. Notes: Determination of stages one and two (with eGFR >59mL/min/1.73 m2) requires estimation of kidney damage for at least three months as defined by structural or functional abnormalities of the kidney, manifested by either:Pathological abnormalities or Markers of kidney damage (including abnormalities in the composition of the blood or urine or abnormalities in imaging tests). [facility] 04:07:45 Test Item Value Reference Range Interpretation Comments MAGNESIUM (test code = 0446521129) 2.3 mg/dL 1.7-2.4 Lab Interpretation (test code = Normal 86736-2) [facility] 04:07:25 Test Item Value Reference Range Interpretation Comments LIPASE (test code = 7293249982) 70 U/L 0-220 Lab Interpretation (test code = Normal 34989-7) [facility] WITH [id number] 03:45:25 Test Item Value Reference Range Interpretation Comments WBC (test code = 8.42 See_Comment [Automated 6690-2) message] The sy stem which generated this result transmitted reference range : 4.20 - 10.70 10*3/?L. The reference range was not used to interpret this result as normal/abnormal . RBC (test code = 5.10 See_Comment [Automated 789-8) message] The sy stem which generated this result transmitted reference range : 4.26 - 5.52 10*6/?L. The reference range was not used to interpret this result as normal/abnormal . HGB (test code = 15.3 g/dL 12.2-16.4 718-7) HCT (test code = 45.6 % 38.4-49.3 4544-3) MCV (test code = 89.4 fL 81.7-95.6 787-2) MCH (test code = 30.0 pg 26.1-32.7 785-6) MCHC (test code = 33.6 g/dL 31.2-35.0 786-4) RDW-SD (test code = 39.3 fL 38.5-51.6 03706-9) RDW-CV (test code = 11.9 % 12.1-15.4 L 788-0) PLT (test code = 324 See_Comment [Automated 777-3) message] The sy stem which generated this result transmitted reference range : 150 - 328 10*3/ ?L. The reference r franc was not used to interpret this result as normal/abnormal . MPV (test code = 9.8 fL 9.8-13.0 05334-1) NRBC/100 WBC (test 0.0 See_Comment [Automat ed code = 3229415341) message] The system which generated this result transmitted reference range : 0.0 - 10.0 /100 WBCs. The refer ence range was not u sed to interpret th is result as normal/abnormal . NRBC x10^3 (test code See_Comment [Auto mated = 7384004092) message] The s ystem which generated this result transmitted reference range : 10*3/?L. The reference range was not used to interpret this result as normal/abnormal . GRAN MAT (NEUT) % 63.0 % (test code = 770-8) IMM GRAN % (test code 0.20 % = 8366824478) LYMPH % (test code = 24.3 % 736-9) MONO % (test code = 6.8 % 5905-5) EOS % (test code = 4.6 % 713-8) BASO % (test code = 1.1 % 706-2) GRAN MAT x10^3(ANC) 5.30 10*3/uL 1.99-6.95 (test code = 4018051297) IMM GRAN x10^3 (test 0.00-0.06 code = 6623888587) LYMPH x10^3 (test code 2.05 10*3/uL 1.09-3.23 = 731-0) MONO x10^3 (test code 0.57 10*3/uL 0.36-1.02 = 742-7) EOS x10^3 (test code = 0.39 10*3/uL 0.06-0.53 711-2) BASO x10^3 (test code 0.09 10*3/uL 0.01-0.09 = 704-7) Lab Interpretation Abnormal (test code = 59735-7) [facility]. METABOLIC PANEL (57972)2022-05-12 06:06:43 Test Item Value Reference Range Interpretation Comments NA (test code = 139 mmol/L 135-145 5194451432) K (test code = 3.7 mmol/L 3.5-5.0 0435556361) CL (test code = 102 mmol/L 98-108 3577095983) CO2 TOTAL (test code = 26 mmol/L 23-31 0704448757) AGAP (test code = 11 2-16 7860628659) BUN (test code = 19 mg/dL 7-23 0150973806) GLUCOSE (test code = 116 mg/dL 70-110 H 5751440008) CREATININE (test code = 0.89 mg/dL 0.60-1.25 2660448942) TOTAL BILI (test code = 0.4 mg/dL 0.1-1.9 5781718690) CALCIUM (test code = 9.1 mg/dL 8.6-10.6 6540831898) T PROTEIN (test code = 7.6 g/dL 6.3-8.2 7340885480) ALBUMIN (test code = 4.6 g/dL 3.5-5.0 5552484246) ALK PHOS (test code = 39 U/L 34-122 9616644739) ALTv (test code = 41 U/L 5-50 1742-6) AST(SGOT) (test code = 32 U/L 13-40 6494419779) eGFR (test code = 97.3 mL/min/1.73m2 6849064362) CHELI (test code = CHELI) Association of Glomerular Filtration Rate (GFR) and Staging of Kidney Disease* + --+ --+ ------+| GFR (mL/min/1.73 m2) ?| With Kidney Damage ?| ?Without Kidney Damage+ --------+ --------+ +| ?>90 ?| ?Stage one ?| ? Normal ?+ ---+ ---+ -------+| ?60-89 ?| ?Stage two ?| ? Decreased GFR ? + --+ --+ ------+| ?30-59 ?| ?Stage three ?| ? Stage three ? + --+ --+ ------+| ?15-29 ?| ?Stage four ? | ? Stage four ?+ ---+ ---+ -------+| ?<15 (or dialysis) ? ?| ?Stage five ? | ? Stage five ?+ ---+ ---+ -------+ *Each stage assumes the associated GFR level has been in effect for at least three months. ?Stages 1 to 5, with or without kidney disease, indicate chronic kidney disease. Notes: Determination of stages one and two (with eGFR >59mL/min/1.73 m2) requires estimation of kidney damage for at least three months as defined by structural or functional abnormalities of the kidney, manifested by either:Pathological abnormalities or Markers of kidney damage (including abnormalities in the composition of the blood or urine or abnormalities in imaging tests). Lab Interpretation Abnormal (test code = 95642-7) [facility]02 Test Item Value Reference Range Interpretation Comments LIPASE (test code = 0682259554) 82 U/L 0-220 Lab Interpretation (test code = Normal 87002-4) [facility] WITH [id number] 05:44:01 Test Item Value Reference Range Interpretation Comments WBC (test code = 11.38 See_Comment H [Automated 6690-2) message] The sy stem which generated this result transmitted reference range : 4.20 - 10.70 10*3/?L. The reference range was not used to interpret this result as normal/abnormal . RBC (test code = 5.33 See_Comment [Automated 789-8) message] The sy stem which generated this result transmitted reference range : 4.26 - 5.52 10*6/?L. The reference range was not used to interpret this result as normal/abnormal . HGB (test code = 15.8 g/dL 12.2-16.4 718-7) HCT (test code = 46.8 % 38.4-49.3 4544-3) MCV (test code = 87.8 fL 81.7-95.6 787-2) MCH (test code = 29.6 pg 26.1-32.7 785-6) MCHC (test code = 33.8 g/dL 31.2-35.0 786-4) RDW-SD (test code = 39.6 fL 38.5-51.6 24346-4) RDW-CV (test code = 12.3 % 12.1-15.4 788-0) PLT (test code = 323 See_Comment [Automated 777-3) message] The sy stem which generated this result transmitted reference range : 150 - 328 10*3/ ?L. The reference r franc was not used to interpret this result as normal/abnormal . MPV (test code = 9.4 fL 9.8-13.0 L 48446-6) NRBC/100 WBC (test 0.0 See_Comment [Automat ed code = 2887872171) message] The system which generated this result transmitted reference range : 0.0 - 10.0 /100 WBCs. The refer ence range was not u sed to interpret th is result as normal/abnormal . NRBC x10^3 (test code See_Comment [Auto mated = 1976039410) message] The s ystem which generated this result transmitted reference range : 10*3/?L. The reference range was not used to interpret this result as normal/abnormal . GRAN MAT (NEUT) % 64.6 % (test code = 770-8) IMM GRAN % (test code 0.30 % = 0717229139) LYMPH % (test code = 22.8 % 736-9) MONO % (test code = 6.9 % 5905-5) EOS % (test code = 4.4 % 713-8) BASO % (test code = 1.0 % 706-2) GRAN MAT x10^3(ANC) 7.37 10*3/uL 1.99-6.95 H (test code = 4733748804) IMM GRAN x10^3 (test 0.03 10*3/uL 0.00-0.06 code = 8351646297) LYMPH x10^3 (test code 2.59 10*3/uL 1.09-3.23 = 731-0) MONO x10^3 (test code 0.78 10*3/uL 0.36-1.02 = 742-7) EOS x10^3 (test code = 0.50 10*3/uL 0.06-0.53 711-2) BASO x10^3 (test code 0.11 10*3/uL 0.01-0.09 H = 704-7) Lab Interpretation Abnormal (test code = 12401-7) [facility] [id number] 18:15:21 Test Item Value Reference Range Interpretation Comments POCT Creatinine (test code = 1.0 mg/dL 0.6-1.3 7430810280) Lab Interpretation (test code = Normal 16978-0) [facility] [id number] 23:04:49 Test Item Value Reference Range Interpretation Comments Case number (test [id number] code = 6934101) Surgical pathology See link below for PDF report (test code = Lab Report 2255) Result status (test This is Supplemental code = 3890903) Report for [id number] [facility]. METABOLIC PANEL (45144)2021-10-27 21:06:49 Test Item Value Reference Range Interpretation Comments NA (test code = 139 mmol/L 135-145 4388718084) K (test code = 4.4 mmol/L 3.5-5 9207942412) CL (test code = 101 mmol/L 98-108 7752376267) CO2 TOTAL (test code 29 mmol/L 23-31 = 7667593052) AGAP (test code = 2-16 7937851506) BUN (test code = 13 mg/dL 7-23 0683001083) GLUCOSE (test code = 83 mg/dL 70-110 2148282779) CREATININE (test code 0.95 mg/dL 0.6-1.25 = 6402921824) TOTAL BILI (test code 0.4 mg/dL 0.1-1.1 = 0295551386) CALCIUM (test code = 9.3 mg/dL 8.6-10.6 6266313200) T PROTEIN (test code 7.1 g/dL 6.3-8.2 = 9639842418) ALBUMIN (test code = 4.4 g/dL 3.5-5 7932860786) ALK PHOS (test code = 46 U/L 34-122 3823696853) ALTv (test code = 33 U/L 5-50 1742-6) AST(SGOT) (test code 30 U/L 13-40 = 8828968398) eGFR (test code = mL/min/1.73m2 5719084802) CHELI (test code = CHELI) Association of Glomerular Filtration Rate (GFR) and Staging of Kidney Disease* + + +- +| GFR (mL/min/1.73 m2) ?| With Kidney Damage ?| ?Without Kidney Damage+ ------+ ----+ ------+| ?>90 ?| ?Stage one ?| ? Normal ?+ -+ + -+| ?60-89 ?| ?Stage two ?| ? Decreased GFR ? + + +- +| ?30-59 ?| ?Stage three ?| ? Stage three ? + + +- +| ?15-29 ?| ?Stage four ? | ? Stage four ?+ -+ + -+| ?<15 (or dialysis) ? ?| ?Stage five ? | ? Stage five ?+ -+ + -+ *Each stage assumes the associated GFR level has been in effect for at least three months. ?Stages 1 to 5, with or without kidney disease, indicate chronic kidney disease. Notes: Determination of stages one and two (with eGFR >59mL/min/1.73 m2) requires estimation of kidney damage for at least three months as defined by structural or functional abnormalities of the kidney, manifested by either:Pathological abnormalities or Markers of kidney damage (including abnormalities in the composition of the blood or urine or abnormalities in imaging tests). [facility] 21:06:03 Test Item Value Reference Range Interpretation Comments LIPASE (test code = 4280678764) 45 U/L 0-220 Lab Interpretation (test code = Normal 13154-9) [facility] WITH [id number] 20:57:04 Test Item Value Reference Range Interpretation Comments WBC (test code = See_Comment [Automated 0949-2) message] The sy stem which generated this result transmitted reference range : 4.20 - 10.70 10*3/?L. The reference range was not used to interpret this result as normal/abnormal . RBC (test code = See_Comment [Automated 602-8) message] The sy stem which generated this result transmitted reference range : 4.26 - 5.52 10*6/?L. The reference range was not used to interpret this result as normal/abnormal . HGB (test code = 15.6 g/dL 12.2-16.4 718-7) HCT (test code = 47.2 % 38.4-49.3 4544-3) MCV (test code = 89.9 fL 81.7-95.6 787-2) MCH (test code = 29.7 pg 26.1-32.7 785-6) MCHC (test code = 33.1 g/dL 31.2-35 786-4) RDW-SD (test code = 39.8 fL 38.5-51.6 80787-8) RDW-CV (test code = 12.1 % 12.1-15.4 788-0) PLT (test code = See_Comment H [Automated 777-3) message] The sy stem which generated this result transmitted reference range : 150 - 328 10*3/ ?L. The reference r franc was not used to interpret this result as normal/abnormal . MPV (test code = 9.6 fL 9.8-13 L 23325-1) NRBC/100 WBC (test See_Comment [Automat ed code = 6249800434) message] The system which generated this result transmitted reference range : 0.0 - 10.0 /100 WBCs. The refer ence range was not u sed to interpret th is result as normal/abnormal . NRBC x10^3 (test code See_Comment [Auto mated = 6031373102) message] The s ystem which generated this result transmitted reference range : 10*3/?L. The reference range was not used to interpret this result as normal/abnormal . GRAN MAT (NEUT) % 71.1 % (test code = 770-8) IMM GRAN % (test code 0.60 % = 7385818920) LYMPH % (test code = 16.2 % 736-9) MONO % (test code = 6.5 % 5905-5) EOS % (test code = 4.7 % 713-8) BASO % (test code = 0.9 % 706-2) GRAN MAT x10^3(ANC) 5.76 10*3/uL 1.99-6.95 (test code = 1253615361) IMM GRAN x10^3 (test 0.05 10*3/uL 0-0.06 code = 6732406875) LYMPH x10^3 (test code 1.31 10*3/uL 1.09-3.23 = 731-0) MONO x10^3 (test code 0.53 10*3/uL 0.36-1.02 = 742-7) EOS x10^3 (test code = 0.38 10*3/uL 0.06-0.53 711-2) BASO x10^3 (test code 0.07 10*3/uL 0.01-0.09 = 704-7) Lab Interpretation Abnormal (test code = 92173-5) [facility]"
[2022-09-01 14:02] LABS: Bilirubin Total 0.2 mg/dL (0.2-1.0); Potassium 3.7 mEq/L (3.5-5.1); Protein, Total 7.7 g/dL (6.4-8.2)
--- NOTE | 2022-09-01 16:05 | RAD REPORT ---
EXAM DESCRIPTION: CT - Abdomen Pelvis W Contrast - 09/01/2022 3:16 pm CLINICAL HISTORY: ABD PAIN COMPARISON: No comparisons TECHNIQUE: Thin cut axial CT imaging of the abdomen and pelvis was performed following intravenous a dministration of 90 mL Isovue 300. Multiplanar reformats were generated and reviewed. All CT scans are performed using dose optimization technique as appropriate and may include automated exposure control or mA/KV adjustment according to patient size. FINDINGS: No suspicious findings in the lung bases. The liver, spleen, and pancreas show no suspicious findings. Gallbladder and biliary tree are also wi thout suspicious finding. Symmetric renal function is seen with no hydronephrosis or suspicious renal mass. No dilated bowel loops or bowel wall thickening. No free air, free fluid or inflammatory stranding. N o hernia, mass or bulky lymphadenopathy. The urinary bladder is without significant finding. No suspicious bony findings. IMPRESSION: No acute intra-abdominal process.
--- NOTE | 2022-09-01 16:18 | ER ---
Nurse's Notes [facility] Name: Victoriano Pantoja Age: 36 yrs Sex: Male : 1985 Arrival Date: 09/01/2022 Time: 12:52 Bed 15 Private MD: Diagnosis: Abdominal pain, gastritis, gastroesophageal reflux, hiatal hernia Presentation: 09/01 13:04 Chief complaint: Patient states: CP after swallowing food last night. Some nausea. Has ll1 been having problems swallowing foods for the past few months. EGD done last October. Coronavirus screen: Vaccine status: Patient reports being unvaccinated. Client denies travel out of the [place] in the last 14 days. At this time, the client does not indicate any symptoms associated with coronavirus-19. Ebola Screen: Patient denies travel to an Ebola-affected area in the 21 days before illness onset. Initial Sepsis Screen: Does the patient meet any 2 criteria? No. Patient's initial sepsis screen is negative. Does the patient have a suspected source of infection? No. Patient's initial sepsis screen is negative. Risk Assessment: Do you want to hurt yourself or someone else? Patient reports no desire to harm self or others. Onset of symptoms was August 31, 2022. 13:04 Method Of Arrival: Ambulatory ll1 13:04 Acuity: CHELSEA 3 ll1 Triage Assessment: 13:06 General: Appears uncomfortable, Behavior is calm, cooperative, appropriate for age. ll1 Pain: Complains of pain in chest Quality of pain is described as pressure, Pain began 1 day ago. Cardiovascular: Reports chest pain, nausea. GI: Reports nausea, pain when swallowing foods. Historical: - Allergies: 13:03 No Known Allergies; ll1 - PMHx: 13:03 Chronic Gastritis; h. pylori; hiatal hernia; ll1 - PSHx: 13:03 None; ll1 - Immunization history:: Client reports having NOT received the Covid vaccine. - Social history:: Smoking status: Patient reports use of chewing tobacco. Patient denies any tobacco usage or history of. Screenin:24 [facility] ED Fall Risk Assessment (Adult) History of falling in the last 3 months, mb9 including since admission No falls in past 3 months (0 pts) Confusion or Disorientation No (0 pts) Intoxicated or Sedated No (0 pts) Impaired Gait No (0 pts) Mobility Assist Device Used No (0 pt) Altered Elimination No (0 pt) Score/Fall Risk Level 0 - 2 = Low Risk Oriented to surroundings, Maintained a safe environment, Educated pt \T\ family on fall prevention, incl call for assistance when getting out of bed. Abuse screen: Denies threats or abuse. Nutritional screening: No deficits noted. Tuberculosis screening: No symptoms or risk factors identified. Assessment: 13:24 Reassessment: see triage assessment. mb9 13:36 Reassessment: contacted CT about pt finishing oral contrast. mb9 14:37 Reassessment: Patient appears in no apparent distress at this time. Patient and/or db family updated on plan of care and expected duration. Pain level reassessed. Patient is alert, oriented x 3, equal unlabored respirations, skin warm/dry/pink. USING CELL PHON Patient states feeling better. Patient states symptoms have improved. 15:30 Reassessment: Patient appears in no apparent distress at this time. Patient and/or db family updated on plan of care and expected duration. Pain level reassessed. Patient is alert, oriented x 3, equal unlabored respirations, skin warm/dry/pink. Pain: Complains of pain in abdomen. Neuro: Level of Consciousness is awake, alert, obeys commands, Oriented to person, place, time, situation. 16:32 Reassessment: Patient appears in no apparent distress at this time. Patient and/or db family updated on plan of care and expected duration. Pain level reassessed. Patient is alert, oriented x 3, equal unlabored respirations, skin warm/dry/pink. General: Appears in no apparent distress. comfortable, Behavior is calm, cooperative. Pain: Complains of pain in abdomen Pain does not radiate. Vital Signs: 13:04 BP 147 / 104; Pulse 92; Resp 16; Temp 98.5; Pulse Ox 95% on R/A; Weight 86.18 kg; ll1 Height 6 ft. 2 in. ; Pain 9/10; 13:24 BP 140 / 76; Pulse 74; Resp 18; Pulse Ox 100% on R/A; mb9 14:00 BP 123 / 82; Pulse 84; Resp 16; Pulse Ox 96% on R/A; db 14:30 BP 110 / 65; Pulse 61; Resp 16; Pulse Ox 96% on R/A; db 15:00 BP 112 / 69; Pulse 61; Resp 16; Pulse Ox 96% on R/A; db 13:04 Body Mass Index 24.39 (86.18 kg, 187.96 cm) ll1 13:04 Pain Scale: Adult 1 ED Course: 12:54 Patient arrived in ED. im 12:54 Shauna Mckoy MD is Attending Physician. sp3 13:03 Arm band placed on Patient placed in an exam room, on a stretcher. ll1 13:06 Triage completed. ll1 13:24 Placed in gown. Bed in low position. Call light in reach. Side rails up X 1. Client mb9 placed on continuous cardiac and pulse oximetry monitoring. NIBP monitoring applied. 13:24 No provider procedures requiring assistance completed. Patient maintains SpO2 mb9 saturation greater than 95% on room air. 13:30 Inserted saline lock: 20 gauge in right antecubital area, using aseptic technique. mb9 13:39 CBC with Diff Sent. mb9 13:39 CMP Sent. mb9 13:39 Lipase Sent. mb9 14:36 Tatiana Hernandez, RN is Primary Nurse. db 15:18 CT Abd/Pelvis - PO and IV Contrast In Process Unspecified. EDMS 16:33 IV discontinued, intact, bleeding controlled, No redness/swelling at site. db Administered Medications: 13:32 Drug: Pantoprazole IVP 40 mg Route: IVP; Site: right antecubital; mb9 16:34 Follow up: Response: No adverse reaction db 13:33 Drug: NS 0.9% IV 500 ml Route: IV; Rate: bolus; Site: right antecubital; mb9 14:30 Follow up: Response: No adverse reaction; IV Status: Completed infusion; IV Intake: db 500ml Medication: 13:24 VIS not applicable for this client. mb9 Intake: 14:30 IV: 500ml; Total: 500ml. db Outcome: 16:17 Discharge ordered by . sp3 16:33 Discharged to home ambulatory. db 16:33 Condition: stable 16:33 Discharge instructions given to patient, Instructed on discharge instructions, follow up and referral plans. 16:35 Patient left the ED. db Signatures: Dispatcher [employer] EDMS Sherrie Warner RN RN [facility] Shauna Mckoy MD MD sp3 Tatiana Hernandez, RN RN db Palmira Rodas, RN RN mb9 Ryan, Dayana landry
--- NOTE | 2022-09-01 16:18 | EDPHYS ---
Physician Documentation [facility] Name: Victoriano Pantoja Age: 36 yrs Sex: Male : 1985 Arrival Date: 09/01/2022 Time: 12:52 Bed 15 Private MD: ED Physician Shauna Mckoy HPI: 09/01 13:15 This 36 yrs old Male presents to ER via Ambulatory with complaints of Abdominal pain, sp3 Nausea. 13:15 36-year-old male with history of chronic gastritis, gastric paresis, hiatal hernia, H. sp3 pylori, GERD with longstanding GI history currently on pantoprazole and sees Dr. Acosta for GI in [place] now presents to the ED with epigastric pain with approximately 2 days of origin. Patient states his pain is progressively gotten worse without any additional symptoms. He denies any upper chest pain, back pain, lower abdominal pain, increase in his emesis, diarrhea, fever, potential bad food, known sick contacts, travel history, or any other signs or symptoms on ROS at this time. Patient also states he is recovering narcotic addict and wishes to not receive any narcotic medications at this time. He denies any narcotic use in the recent past.. Historical: - Allergies: 13:03 No Known Allergies; ll1 - PMHx: 13:03 Chronic Gastritis; h. pylori; hiatal hernia; ll1 - PSHx: 13:03 None; ll1 - Immunization history:: Client reports having NOT received the Covid vaccine. - Social history:: Smoking status: Patient reports use of chewing tobacco. Patient denies any tobacco usage or history of. ROS: 13:16 Constitutional: Negative for fever, chills, and weight loss, Eyes: Negative for injury, sp3 pain, redness, and discharge, ENT: Negative for injury, pain, and discharge, Neck: Negative for injury, pain, and swelling, Cardiovascular: Negative for chest pain, palpitations, and edema, Respiratory: Negative for shortness of breath, cough, wheezing, and pleuritic chest pain, Back: Negative for injury and pain, MS/Extremity: Negative for injury and deformity, Skin: Negative for injury, rash, and discoloration, Neuro: Negative for headache, weakness, numbness, tingling, and seizure, Psych: Negative for depression, anxiety, suicide ideation, homicidal ideation, and hallucinations, Allergy/Immunology: Negative for hives, rash, and allergies, Endocrine: Negative for neck swelling, polydipsia, polyuria, polyphagia, and marked weight changes, Hematologic/Lymphatic: Negative for swollen nodes, abnormal bleeding, and unusual bruising. 13:16 All other systems are negative. Exam: 13:17 Constitutional: This is a well developed, well nourished patient who is awake, alert, sp3 and in no acute distress. Head/Face: Normocephalic, atraumatic. Eyes: Pupils equal round and reactive to light, extra-ocular motions intact. Lids and lashes normal. Conjunctiva and sclera are non-icteric and not injected. Cornea within normal limits. Periorbital areas with no swelling, redness, or edema. Neck: Trachea midline, no thyromegaly or masses palpated, and no cervical lymphadenopathy. Supple, full range of motion without nuchal rigidity, or vertebral point tenderness. No Meningismus. Chest/axilla: Normal chest wall appearance and motion. Nontender with no deformity. No lesions are appreciated. Cardiovascular: Regular rate and rhythm with a normal S1 and S2. No gallops, murmurs, or rubs. Normal PMI, no JVD. No pulse deficits. Respiratory: Lungs have equal breath sounds bilaterally, clear to auscultation and percussion. No rales, rhonchi or wheezes noted. No increased work of breathing, no retractions or nasal flaring. Skin: Warm, dry with normal turgor. Normal color with no rashes, no lesions, and no evidence of cellulitis. MS/ Extremity: Pulses equal, no cyanosis. Neurovascular intact. Full, normal range of motion. Neuro: Awake and alert, GCS 15, oriented to person, place, time, and situation. Cranial nerves II-XII grossly intact. Motor strength 5/5 in all extremities. Sensory grossly intact. Cerebellar exam normal. Normal gait. Psych: Awake, alert, with orientation to person, place and time. Behavior, mood, and affect are within normal limits. Vital Signs: 13:04 BP 147 / 104; Pulse 92; Resp 16; Temp 98.5; Pulse Ox 95% on R/A; Weight 86.18 kg; ll1 Height 6 ft. 2 in. ; Pain 9/10; 13:24 BP 140 / 76; Pulse 74; Resp 18; Pulse Ox 100% on R/A; mb9 14:00 BP 123 / 82; Pulse 84; Resp 16; Pulse Ox 96% on R/A; db 14:30 BP 110 / 65; Pulse 61; Resp 16; Pulse Ox 96% on R/A; db 15:00 BP 112 / 69; Pulse 61; Resp 16; Pulse Ox 96% on R/A; db 13:04 Body Mass Index 24.39 (86.18 kg, 187.96 cm) ll1 13:04 Pain Scale: Adult ll1 MDM: 13:01 Patient medically screened. sp3 13:17 Data reviewed: vital signs, nurses notes, lab test result(s), radiologic studies. ED sp3 course: 36-year-old with extensive GI history now presents with epigastric pain. Consider biliary pathology, pancreatitis, gastritis, ulcer disease, functional abdominal pain, among others. I am not highly concerned for vascular pathology including aorta, ACS, mesenteric ischemia, retroperitoneal pathology, pathology including kidney stone, pyelonephritis, UTI, any other critical findings or sepsis at this time. We will obtain laboratory values including lipase and CT scan of the abdomen pelvis with p.o. and IV contrast. Patient has his next appointment with GI in November and he states that he will change it to the next available appointment. If work-up is negative, we will safely discharge patient home. He will receive pantoprazole 40 mg IV and normal saline while we await his work-up to be completed.. 16:13 ED course: CT scan demonstrates no acute abnormality and laboratory values are within sp3 normal limits. As per patient request, no narcotic intervention will be performed. We will safely discharge patient home with follow-up to his GI physician Dr. Acosta in the coming immediate future.. 09/01 13:15 Order name: CBC with Diff; Complete Time: 15:08 sp3 09/01 13:15 Order name: CMP; Complete Time: 15:08 sp3 09/01 13:15 Order name: Lipase; Complete Time: 15:08 sp3 09/01 13:15 Order name: CT Abd/Pelvis - PO and IV Contrast; Complete Time: 16:13 sp3 09/01 13:15 Order name: IV Saline Lock; Complete Time: 13:39 sp3 09/01 13:15 Order name: Labs collected and sent; Complete Time: 13:39 sp3 Administered Medications: 13:32 Drug: Pantoprazole IVP 40 mg Route: IVP; Site: right antecubital; mb9 16:34 Follow up: Response: No adverse reaction db 13:33 Drug: NS 0.9% IV 500 ml Route: IV; Rate: bolus; Site: right antecubital; mb9 14:30 Follow up: Response: No adverse reaction; IV Status: Completed infusion; IV Intake: db 500ml Disposition Summary: 09/01/22 16:17 Discharge Ordered Location: Home sp3 Condition: Stable sp3 Diagnosis - Abdominal pain, gastritis, gastroesophageal reflux, hiatal hernia sp3 Followup: sp3 - With: Private Physician - When: Upon discharge from the Emergency Department - Reason: Continuance of care Discharge Instructions: - Discharge Summary Sheet sp3 - Gastritis, Adult sp3 Forms: - Medication Reconciliation Form sp3 - Thank You Letter sp3 - Antibiotic Education sp3 - Prescription Opioid Use sp3 - Work release form db Signatures: Dispatcher [employer] Sherrie Ceja, RN RN ll1 Shauna Mckoy MD MD sp3 Palmira Rodas RN RN mb9 Tatiana Hernandez RN db
[2022-09-01 16:47] VITALS: TEMP 98.5
[2022-09-01 16:58] VITALS: O2SAT 96
[2022-09-01 17:05] VITALS: BP 112/69
== END 2022-09-01 16:35 | disposition home or self-care (01) ==
LOC: ER 12:52
DX: K29.70 Gastritis, unspecified, without bleeding (principal); K21.9 Gastro-esophageal reflux disease without esophagitis; K44.9 Diaphragmatic hernia without obstruction or gangrene
CPT/HCPCS: 96361; 85025; 36415; 83690; 80053; 74177; 96374; 99285; Q9967; C9113; J7040